=== PATIENT | male | born 1945 | race Caucasian/White ===

== ENCOUNTER → 2020-03-01 14:04 | Outpatient (BNVA) | payer MEDICARE, SELFPAY | PROVIDERS: PCP Internal Medicine; Visit Provider Urology | DX: N28.1 Cyst of kidney, acquired (principal) | CPT/HCPCS: 81002; 99202 ==

== ENCOUNTER → 2021-03-05 11:19 | Outpatient (BNVA) | payer MEDICARE, SELFPAY | PROVIDERS: PCP Internal Medicine; Visit Provider Urology | DX: Z13.89 Encounter for screening for other disorder (principal) | CPT/HCPCS: Q3014 ==

== ENCOUNTER → 2021-12-31 14:07 | Outpatient (BNVA) | payer MEDICARE, SELFPAY | PROVIDERS: PCP Internal Medicine; Visit Provider Hospitalist | DX: R91.1 Solitary pulmonary nodule (principal) | CPT/HCPCS: 99202 ==

== ENCOUNTER 2022-03-20 13:24 | Outpatient (REF) | payer MEDICARE, SELFPAY ==
--- NOTE | ~2022-03-20 | US_ITS ---
EXAMINATION: US RETROPERITONEAL LIMITED (RENAL ONLY) CLINICAL INFORMATION: Cyst of kidney, acquired. COMPARISON: MRI abdomen 04/10/2020. TECHNIQUE: Real-time imaging of the kidneys. FINDINGS: RIGHT KIDNEY: 13.6 x 6.2 x 6.6 cm (SAG x AP x TRV). The kidney is normal in size, contour, and echogenicity. Renal cortical thickness is normal. No renal calculi or hydronephrosis. There are multiple anechoic cysts with largest cyst upper pole measuring 5.3 x 3.9 x 5.0 cm. LEFT KIDNEY: 14.1 x 6.4 x 5.9 cm (SAG x AP x TRV). The kidney is normal in size, contour, and echogenicity. Renal cortical thickness is normal. No renal calculi or hydronephrosis. There are multiple anechoic cysts in midpole with the largest measuring 3.7 x 2.6 x 3.1 cm. US/US renal BI IMPRESSION: Bilateral renal cysts. No echogenic stones or hydronephrosis seen.
== END 2022-03-20 13:25 | disposition home or self-care (01) ==
LOC: HO.US 13:24
PROVIDERS: Visit Provider Urology
DX: N28.1 Cyst of kidney, acquired (principal)
CPT/HCPCS: 76775

== ENCOUNTER → 2022-04-09 11:11 | Outpatient (BNVA) | payer MEDICARE, SELFPAY | PROVIDERS: PCP Internal Medicine; Visit Provider Urology | DX: N28.1 Cyst of kidney, acquired (principal) | CPT/HCPCS: Q3014 ==

== ENCOUNTER 2023-02-26 14:20 | Outpatient (AMB) | payer MEDICARE, SELFPAY ==
--- NOTE | 2023-02-26 14:39 | MHC.OFFVIS ---
Intake Vital Signs 02/26/23 14:40 Height 6 ft 3 in Weight 225 lb BMI 28.1 Pulse 73 Pulse Oximetry (%) 95 Oxygen Delivery Method Room Air Intake Visit Reasons: Pulmonary Nodule Mason Tender Restoration Labor Required: No Allergies No Known Allergies Allergy (Verified 02/26/23 14:40) HPI HPI Comments History of Present Illness Details The patient is a 77-year-old gentleman with a known history of pulmonary nodules was referred to us for further evaluation. From a respiratory status the patient does well. Denies any shortness of breath or cough. Typically lives half the year in [place] specially during the winter months. While he is there he does have a swimming. The patient did undergo a CT scan of the chest last in March 2021. the patient was noted to have 6 mm pulmonary nodule. When compared to 2019 had not significantly changed. Otherwise patient is doing well. There is no other parenchymal lung disease to further assess. The patient has not use any inhalers and he does not need any at this time. 02/26/2023 the patient is here for a pulmonary follow-up visit. Since we last spoke he was evaluated at [facility] with a CT scan of the abdomen. This is done in January 2023. I did personally review the images demonstrating a 5 mm pulmonary nodule in the left lower lobe. I compared to the CT scan he had back at [facility] radiology in appears that the nodule has not changed in a year. Therefore, no additional imaging is warranted at this time. The patient did however have the CT scan of the abdomen demonstrated on increasing pancreatic lesion. Therefore he did have an MRI and will be further evaluated at [facility] for this concerning finding. The patient will follow-up in a year's time with a CT scan of the chest. If any issues arise the patient can always call for an earlier assessment. [facility] Medical History Pulmonary nodule Social History Patient Tobacco Use Status: Former Tobacco user Tobacco use type: Cigarette Years Smoked: 40 Years Review of Systems Const Denies fever(s) Eyes Denies change in vision ENT Reports hearing loss Card Denies chest pain and Denies dyspnea on exertion Resp Denies cough and Denies dyspnea on exertion GI Reports no additional complaints Musc Reports arthralgias, Reports joint swelling and Reports limited range of motion Neuro Reports no additional complaints Irwin/Lymph Denies easy bleeding and Denies easy bruising Physical Exam Vital Signs: Last Vital Signs Pulse 73 02/26/23 14:40 Pulse Ox 95 02/26/23 14:40 Oxygen Delivery Method Room Air 02/26/23 14:40 BMI result Body Mass Index 28.1 Const General: comfortable HEENT Head: Yes normal to inspection Eyes General: appearance normal, both eyes and all related structures Neck Neck: Yes supple Chest Chest palpation & inspection: normal inspection of the chest Resp Effort & Inspection: normal respiratory effort Auscultation: clear to auscultation bilaterally Cardio Rate: regular rate Rhythm: regular rhythm Heart sounds: S1 normal heart sound present and S2 normal heart sound present GI Auscultation: normal bowel sounds Extrem General: Yes no clubbing, cyanosis or edema Assessment & Plan Assessment & Plan (1) Pulmonary nodule: Code(s): R91.1 - Solitary pulmonary nodule Plan Repeat CT chest in 1 year Further eval for the pancreatic lesion F/U 1 yr Orders: Orders CT chest wo IV con 364 Days R91.1 - Solitary pulmonary nodule Coding Level of Care Code Est Pt Level 4 (20682) Diagnoses Pulmonary nodule R91.1 Time Spent (min) 17
[2023-02-26 14:40] VITALS: PULSE 73; O2SAT 95; BMI 28.1
== END 2023-02-26 15:02 | disposition home or self-care (01) ==
PROVIDERS: PCP Internal Medicine; Visit Provider Hospitalist
DX: R91.1 Solitary pulmonary nodule (principal)
CPT/HCPCS: 99214

== ENCOUNTER → 2023-02-26 14:20 | Outpatient (BNVA) | payer MEDICARE, SELFPAY | PROVIDERS: PCP Internal Medicine; Visit Provider Hospitalist | DX: R91.1 Solitary pulmonary nodule (principal) | CPT/HCPCS: 99212 ==

== ENCOUNTER 2024-01-25 10:22 | Outpatient (REF) | payer MEDICARE, SELFPAY ==
--- NOTE | ~2024-01-25 | CT_ITS ---
EXAMINATION: CT CHEST WITHOUT CONTRAST CLINICAL INFORMATION: Solitary pulmonary nodule. COMPARISON: None available. TECHNIQUE: Multidetector volumetric CT imaging of the chest was done. Axial MIP volume rendering provided. Sagittal and coronal reformatted images were obtained. This CT examination was performed using dose optimization techniques as appropriate, variously including the following: *Automated exposure control *Adjustment of mA and/or kV according to patient size (this includes techniques or standardized protocols for targeted exams where dose is matched to indication/reason for exam; i.e. extremities or head) *Use of iterative reconstruction technique DLP: 469 mGy-cm FINDINGS: Submitted for interpretation on March 25, 2024. There is a 4 mm low-density noncalcified nodule in the periphery of the left lower lung lobe. There are few scattered less than 1 mm calcified pulmonary nodules in the periphery of the lower lung lobes likely granulomata. No bronchiectasis. No honeycombing. No pleural effusion. No pneumothorax. No lymphadenopathy, mediastinum. Calcified plaques in the thoracic aorta its main branches and the coronary arteries. No aneurysm, thoracic aorta. No pericardial effusion. The thyroid gland is not enlarged. Small hiatal hernia. Cholelithiasis. Multifocal exophytic cystic lesions in both kidneys. There is a 1.5 cm isodense cystic lesion in the posterior upper pole left kidney which measures 10 Hounsfield units. Multilevel cervical thoracic spondylosis without acute fracture or gross listhesis. S-shaped curvature of the thoracic spine and cervical thoracic junction. No lytic or blastic lesions. CT/CT chest wo IV con IMPRESSION: 4 mm low-density noncalcified pulmonary nodule, left lower lung lobe. Nonspecific. Cholelithiasis. Bosniak type II cysts. Coronary artery disease and atherosclerosis disease. Fleischner guidelines were followed. Electronically signed by: Son Martin MD 03/25/2024 02:59 PM [facility] [place]
== END 2024-01-25 10:23 | disposition home or self-care (01) ==
LOC: HO.CT 10:22
PROVIDERS: PCP Internal Medicine; Visit Provider Hospitalist
DX: R91.1 Solitary pulmonary nodule (principal)
CPT/HCPCS: 71250

== ENCOUNTER → 2024-01-25 10:25 | Outpatient (BNV) | payer MEDICARE, SELFPAY | PROVIDERS: PCP Internal Medicine; Visit Provider Radiology Diagnostic Radiology | DX: R91.1 Solitary pulmonary nodule (principal) | CPT/HCPCS: 71250 ==

== ENCOUNTER 2024-03-01 13:12 | Outpatient (AMB) | payer MEDICARE, SELFPAY ==
--- NOTE | 2024-03-01 13:12 | A.OFFVIS_ITS ---
Vital Signs 03/01/24 13:15 Height 6 ft 3 in Weight 227 lb 1.218 oz BMI 28.4 BP 128/62 Blood Pressure Location Lt brachial Position Sitting Pulse 89 Pulse Source Pulse Oximeter Pulse Oximetry (%) 96 Oxygen Delivery Method Room Air Intake Visit Reasons: pulmonary nodule Bench Worker Helper Required: No Information Systems Security Officer: Information Systems Security Officer offered & declined Accompanied by: Spouse Allergies No Known Allergies Allergy (Verified 03/01/24 13:19) HPI Comments Details: The patient is a 78-year-old gentleman with a known history of pulmonary nodules was referred to us for further evaluation. From a respiratory status the patient does well. Denies any shortness of breath or cough. Typically lives half the year in [place] specially during the winter months. While he is there he does have a swimming. The patient did undergo a CT scan of the chest last in March 2021. the patient was noted to have 6 mm pulmonary nodule. When compared to 2019 had not significantly changed. Otherwise patient is doing well. There is no other parenchymal lung disease to further assess. The patient has not use any inhalers and he does not need any at this time. 02/26/2023 the patient is here for a pulmonary follow-up visit. Since we last spoke he was evaluated at [facility] with a CT scan of the abdomen. This is done in January 2023. I did personally review the images demonstrating a 5 mm pulmonary nodule in the left lower lobe. I compared to the CT scan he had back at [facility] radiology in appears that the nodule has not changed in a year. Therefore, no additional imaging is warranted at this time. The patient did however have the CT scan of the abdomen demonstrated on increasing pancreatic lesion. Therefore he did have an MRI and will be further evaluated at [facility] for this concerning finding. The patient will follow-up in a year's time with a CT scan of the chest. If any issues arise the patient can always call for an earlier assessment. 03/01/2024 the patient is here for pulmonary follow-up visit. Overall he is doing okay. He does have a cough. At times bronchospastic. The has noticed that he has been having some wheezing specially at nighttime. He the patient has been vaping. He understands the vaping will result in potential irritation to the airways. I did recommend edibles or tincture. He is going to consider. The patient did have a CT scan of the chest which I personally reviewed. I compared to the CT scan the head at the [facility]. The CT scan here has not been officially read yet. Although looking at the CT scan from 2021 I do not see any significant changes in the nodular densities. He does have some changes to the right base which could suggest that he is aspirating Lee microscopically. The patient does have more symptoms of coughing at nighttime. He is going to try to sleep elevated and avoid eating 3 hours before bedtime. Will have him follow-up with an x-ray through [address] off on [address] scan specially since the nodules have been stable now since 2018. If the patient has any worsening symptoms prior to that he will call. I will send him a rescue inhaler that he can use now for his cough. He is going to try to cut down on the vaping. [facility] Medical History Pulmonary nodule Social History Patient Tobacco Use Status: Former Tobacco user Tobacco use type: Cigarette Years Smoked: 40 Years Review of Systems Const Denies fever(s) Eyes Denies change in vision ENT Reports hearing loss Card Denies chest pain and Denies dyspnea on exertion Resp Denies cough and Denies dyspnea on exertion GI Reports no additional complaints Musc Reports arthralgias, Reports joint swelling and Reports limited range of motion Neuro Reports no additional complaints Irwin/Lymph Denies easy bleeding and Denies easy bruising Physical Exam Vital Signs: Last Vital Signs Pulse 89 03/01/24 13:15 BP 128/62 03/01/24 13:15 Pulse Ox 96 03/01/24 13:15 Oxygen Delivery Method Room Air 03/01/24 13:15 BMI result Body Mass Index 28.4 Const General: comfortable HEENT Head: Yes normal to inspection Eyes General: appearance normal, both eyes and all related structures Neck Neck: Yes supple Chest Chest palpation & inspection: normal inspection of the chest Resp Effort & Inspection: normal respiratory effort Auscultation: clear to auscultation bilaterally Cardio Rate: regular rate Rhythm: regular rhythm Heart sounds: S1 normal heart sound present and S2 normal heart sound present GI Auscultation: normal bowel sounds Extrem General: Yes no clubbing, cyanosis or edema Assessment & Plan Assessment & Plan (1) Pulmonary nodule: Code(s): R91.1 - Solitary pulmonary nodule Category: Medical Plan Repeat CXR in 1 year start LUC as needed F/U 1 yr Orders: Orders XR chest 2V Today R91.1 - Solitary pulmonary nodule Medications: New albuterol sulfate 90 mcg/actuation 2 inhalations inhalation Q6H 30 days PRN 18 grams 12RF shortness of breath or wheezing J44.9 - Chronic obstructive pulmonary disease, unspecified Coding Level of Care Code Est Pt Level 4 (47784) Diagnoses Pulmonary nodule R91.1 Time Spent (min) 16
[2024-03-01 13:15] VITALS: BP 128/62; PULSE 89; O2SAT 96; BMI 28.4
== END 2024-03-01 13:35 | disposition home or self-care (01) ==
PROVIDERS: PCP Internal Medicine; Visit Provider Hospitalist
DX: R91.1 Solitary pulmonary nodule (principal)
CPT/HCPCS: 99214

== ENCOUNTER → 2024-03-01 13:12 | Outpatient (BNVA) | payer MEDICARE, SELFPAY | PROVIDERS: PCP Internal Medicine; Visit Provider Hospitalist | DX: J44.9 Chronic obstructive pulmonary disease, unspecified (principal); R91.1 Solitary pulmonary nodule | CPT/HCPCS: 99212 ==

== ENCOUNTER 2024-10-26 15:01 | Outpatient (AMB) | payer MEDICARE, SELFPAY ==
--- OUTSIDE RECORDS SUMMARY | 2023-09-02 13:30 | XMS_ITS ---
Author Organization [facility] Address [address] [facility] [address] [place] [address] Care Team Providers Care Alumnae Secretary Name Role Phone IVAN DIXON Primary Care Provider Lopez Lepe Unavailable [phone] Gilbert Valle Unavailable [phone] REASON FOR VISIT 1 month fu Encounters Encounter Location Date Provider Diagnosis [facility] [address] [place] [address] 09/02/2023 Gilbert Valle Plan Of Treatment No Information Progress Notes * Antony QUINNDOB:1945 ( 79 yo M)Acc No.[id number]:09/02/2023 Progress Notes Patient: Antony Grande Provider: Augustus Valle MD :1945 A ge:78 Y S ex:Male Date:09/02/2023 Address:[address] [place] [address], [address], [place], [phone] Pcp:IVAN DIXON Subjective: * Chief Complaints: * 1 month fu Billing Information: * Procedure Codes: * Electronic signature of Lisa Valle MD on 10/26/2024 at 03:25 PM EDT Sign off status: Pending * Provider: Augustus Valle MD Date: 09/02/2023 Generated for Samantha burgos/Nina/eTransmitting on: 10/26/2024 03:25 PM EDT
--- NOTE | 2024-10-26 15:07 | A.OFFVIS_ITS ---
Intake Visit Reasons: follow up per Dr. Mann Intake Note: Patient is present for F/U Urology Medication:NONE Antibiotic Allergy:NONE Blood Thinner:APIXABAN Director Of Employee Development Required: No Allergies No Known Allergies Allergy (Verified 10/26/24 15:07) HPI Comments Details: Antony is a pleasant male. He is a patient of Dr. Mann. He is seen for the following urologic conditions - renal cyst Three year follow-up CT scan chest reviewed Cysts shows stability in size Follow-up p.r.n. Renal cyst Asymptomatic Cysts found during abdominal imaging Imaging - 02/06 renal ultrasound with bilateral renal cysts up to 5 cm - 04/08 MRI with bilateral cysts up to 5 cm staying stable - 04/10 renal ultrasound. Multiple bilateral cysts. Up to 5 cm right side. 3.5 cm left side. Stable - 06/[address] which shows kidneys. Cysts re displayed. Stable in size. PSA 10/08 0.9 PFSH Medical History Pulmonary nodule Social History Patient Tobacco Use Status: Former Tobacco user Tobacco use type: Cigarette Years Smoked: 40 Years Review of Systems Const Denies chills and Denies fever(s) Card Reports no additional complaints and Denies syncope Resp Denies cough GI Denies abdominal pain and Denies heartburn Reports as per HPI and Denies change in libido Neuro Denies syncope Psych Denies change in libido Endo Denies change in libido Physical Exam Const General: cooperative, healthy appearing, comfortable and no acute distress Orientation/consciousness: patient oriented x3 HEENT Face and sinus: Yes normal facial exam Mouth: moist mucous membranes Neck Neck: Yes normal visual inspection, Yes full ROM and Yes trachea midline Chest Chest palpation & inspection: normal inspection of the chest Resp Effort & Inspection: normal respiratory effort, able to speak in complete sentences and no respiratory distress GI Inspection: Yes normal to inspection Back/Spine/Pelvis Cervical Spine: normal cervical lordosis Thoracic/Lumbar Spine: thoracic and lumbar spine normal to inspection Skin General skin exam: no rashes or lesions noted Neuro General: patient oriented x3, gait normal, tone normal and moves all extremities Extrem General: Yes normal to inspection and Yes capillary refill normal Assessment & Plan Assessment & Plan (1) Renal cysts, acquired, bilateral: Comment: Bilateral cyst up to 5 cm Code(s): N28.1 - Cyst of kidney, acquired Category: Medical Plan P.r.n. follow-up Patient Instructions: This note is constructed using voice recognition software. While every effort has been made to ensure accuracy global clinical leader errors may have been included. Imaging studies, laboratory and physical exam results were discussed and reviewed in detail. No major barriers to patient understanding were identified. An opportunity to ask questions regarding the treatment plan was provided. All questions were answered. The patient expressed understanding and agreement with the above treatment plan. The patient is aware they should contact our office by phone for worsening of their current condition or the appearance of new urologic symptoms. Compliance is encouraged with any medications and followup testing that is ordered. It is a privilege to participate in the urologic care of your patient. If you have any questions or concerns regarding treatment for the above conditions, or other urologic issues, please do not hesitate to contact me. The office telephone contact is [phone]. Sincerely, Dr Taran Song MD, [facility] - Urology Compassionate Specialist Care for the Genitourinary System Coding Level of Care Code Est Pt Level 4 (92434) Diagnoses Renal cysts, acquired, bilateral N28.1
--- OUTSIDE RECORDS SUMMARY | 2024-10-26 15:25 | XMS_ITS | Data Portability ---
Author Organization [facility], [facility] Address [address] [facility] [address] [place] [address] Care Team Providers Care Order Builder Name Role Phone GRICEL FUENTES French Polisher [phone] IVAN DIXON Primary Care Provider [phone] GRABIEL GIRARD Primary Care Provider Assessment No assessment recorded. Plan of Treatment Reminders Order Date Submit Date Provider Last Modified By Organization Details Last Modified Time Details Appointments [facility] Patient 30 2025 01:00P M Charlie uTrpin MD Not available Not available Not available Lab None recorded . Referral None recorded . Procedures lexiscan cardioli te stress test (PROC) - Thurs AM 2021 [email or web address] [place] [address] ([facility]), [address] [place], [address], 09/19/2021 12:49:19 Surgeries None recorded . Imaging electroc ardiogra m 2024 025 [email or web address] [facility], [address] [place], [address], 06/09/2024 13:35:56 electroc ardiogra m 2023 024 [email or web address] [facility] [facility], [address] [facility], [place], [address], 06/09/2023 09:35:21 electroc ardiogra m 2022 023 Not available 07/14/2022 15:18:14 electroc ardiogra m 2021 022 [email or web address] [facility], [address], [address], [place], [address], 08/13/2021 09:32:57 Medication Orders None recorded . Patient TargetsNo targets recorded. Patient Instructions Encounter Date Encounter Id Patient Instructions Last Modified By Organization Details Last Modified Time 08/13/2021 [id number] medical record request* - please send most recent labs with lipids [email or web address] Not available 09/02/2021 15:13:50 06/09/2023 [id number] medical record request* - please send most recent labs [email or web address] Not available 10/20/2023 08:13:22 06/09/2024 [id number] body mass index: care instructions [email or web address] Not available 06/09/2024 13:29:35 medical record request* - Please send most recent labs jvafai Not available 10/03/2024 12:45:54 Reason for Referral None Reported. Results Created Date Observation Date Name Description Value Unit Range Abnormal Flag Note LastModifiedBy Organization Detail LastModifiedTime 07/14/1907/12/2020 US, echoc ardio gram, trans thora cic, compl ete, w/ color flow No observ ation record ed. [email or web address] [facility] [address], [place], [address], 07/13/2020 09:50:52 08/14/19 22 08/13/2021 elect rocar diogr am No observ ation record ed. [email or web address] [facility] [address], [place], [address], 08/13/2021 09:24:25 08/14/19 elect rocar diogr am No observ ation record ed. jvafai Not Available 2021 09:10:30 08/16/19 22 08/15/2021 NM, myoca rdial perfu narayan scan, multi ple Patien t Name: ANTONY QUINN 80 [facility] [address] [place] [address] Radiol ogy ACCESS ION EXAM DATE/T DANIEL PROCED URE ORDERI NG STATUS PROVID ER - 022 NM Myocar dial DYANA GRIFFIN, Auth [id number] 10:27 EDT Perf Multi JONATH AN J (Verif ied) Rest/S tress Reason For Exam (NM Myocar dial Perf Multi Rest/S tress) Unexpl ained Chest Pain Report Myocar dial SPECT scan and gated SPECT left ventri cular ejecti on fracti on: Clinic al indica tion: Unexpl ained Chest Pain Follow ing IV admini strati on of 11 mCi of Tc 99m Myovie w, restin g SPECT scan was perfor med. Follow ing IV admini strati on of 30 mCi techne tium 99m Myovie w and 0.4 mg/ml of Lexisc an, stress imagin g was obtain ed. There is normal , homoge neous perfus ion to all segmen ts of the myocar dium on both the stress and restin g phases with no fixed or revers ible defect s to sugges t infarc tion or ischem ia, respec tively . There is no left ventri cular dilata tion. The comput er-gen erated gated SPECT left ventri cular ejecti on fracti ons are 82% at rest with stress . There are no region al left ventri cular wall motion abnorm alitie s. IMPRES NARAYAN: No eviden ce of infarc tion or chemic al-ind uced ischem ia. 82% LVEF ____ Fin al Report Dictat ed: 2021 10:30 am Dictat ed By: JONO CHANDLER MD Electr onic Signat ure: 2021 10:32 am Signed By: JONO CHANDLER MD Admitt ing: DYANA GRIFFIN, LASHAY Odonnell ting: [facility] (Imaging) [address] [place], [address], 08/15/2021 11:30:24 07/15/19 23 07/14/2022 elect rocar diogr am No observ ation record ed. [email or web address] [facility] [address] [place], [address], 07/14/2022 14:46:17 07/15/19 23 elect rocar diogr am No observ ation record ed. [email or web address] Not Available 2023 09:26:39 06/09/19 24 06/09/2023 elect rocar diogr am No observ ation record ed. [facility] [address] [facility] [address], [place], [address], 06/09/2023 09:26:35 06/09/19 24 elect rocar diogr am No observ ation record ed. jvafai Not Available 2023 09:26:39 06/09/19 25 06/09/2024 elect rocar diogr am No observ ation record ed. [email or web address] [facility] [address] [place], [address], 06/09/2024 13:27:03 06/09/19 25 elect rocar diogr am No observ ation record ed. jvafai Not Available 2024 13:31:38 Result Notes Documentation Provider Name and Address Organization Details Recorded Time Nm, Myocardial Perfusion Scan, Multiple : Patient Name: ANTONY QUINN Location: [facility] [address] [place] [address] Radiology ACCESSION EXAM DATE/TIME PROCEDURE ORDERING STATUS PROVIDER - 08/15/2021 NM Myocardial DYANA GRIFFIN, Auth [id number] 10:27 EDT Perf Multi CHARLIE Hoffman (Verified) Rest/Stress Reason For Exam ([place] Myocardial Perf Multi Rest/Stress) Unexplained Chest Pain Report Myocardial SPECT scan and gated SPECT left ventricular ejection fraction: Clinical indication: Unexplained Chest Pain Following IV administration of 11 mCi of Tc 99m Myoview, resting SPECT scan was performed. Following IV administration of 30 mCi technetium 99m Myoview and 0.4 mg/ml of Lexiscan, stress imaging was obtained. There is normal, homogeneous perfusion to all segments of the myocardium on both the stress and resting phases with no fixed or reversible defects to suggest infarction or ischemia, respectively. There is no left ventricular dilatation. The computer-generated gated SPECT left ventricular ejection fractions are 82% at rest with stress. There are no regional left ventricular wall motion abnormalities. IMPRESSION: No evidence of infarction or chemical-induced ischemia. 82% LVEF Final Report Dictated: 08/15/2021 10:30 am Dictated By: GRICEL DASH MD Electronic Signature: 08/15/2021 10:32 am Signed By: GRICEL DASH MD Admitting: CHARLIE TURPIN MD Consulting: Charlie Turpin MD [address] [facility] [address], [address], [facility] 08/15/2021 11:30:24 Problems Name Problem SNOMED Code Status Onset Date Resolution Date Notes Provider Name and Address Organization Details Recorded Time Coronary arteriosclerosi s 29412683 Active 2020 Charlie Turpin MD [address] [facility] ,[address], [place], [address], [facility] 3 14:44:04 Hyperlipidemia 52322109 Active 2024 Charlie Turpin MD [address] [facility] ,[address], [place], [address], [facility] 5 13:25:55 Notes:Some problems listed i n Document: #[id number] could not be added to this patient's chart. Please review this document and add these problems to the patient's chart manually as needed. Problem Notes None recorded. Procedures Surgical History Date Name Laterality Status Provider Name and Address Organization Details Recorded Time 04/20/[address] [facility] 09:25:04 04/20/19 10 Knee Replacement completed [facility] 06/19/2020 09:25:31 Imaging Results None recorded. Procedure Notes None recorded. Medical Equipment None Reported. Allergies No known drug allergies Medications Name Sig Start Date Stop Date Status Note LastModified by Organization Details LastModified Time amoxicillin 500 mg capsule TAKE 1 CAPSULE BY MOUTH THREE TIMES A DAY UNTIL GONE 06/09 completed Not Available Not Available Not Available furosemide 40 mg tablet TAKE 1 TABLET BY MOUTH EVERY DAY 06/19 completed Not Available Not Available Not Available atorvastati n 40 mg tablet TAKE 1 TABLET DAILY 2024 active Not Available Not Available Not Avai lable atorvastati n 80 mg tablet TAKE 1 TABLET BY MOUTH EVERY DAY 06/19 completed Not Available Not Available Not Available atorvastati n 20 mg tablet TAKE 2 TABLETS EVERY DAY AT BEDTIME 06/09 completed Not Available Not Available Not Available donepezil 5 mg tablet Take 1 tablet every day by oral route. 06/09 completed Not Available Not Available Not Available azithromyci n 250 mg tablet TAKE 2 TABLETS BY MOUTH TODAY, THEN TAKE 1 TABLET DAILY FOR 4 DAYS 07/14 completed Not Available Not Available Not Available donepezil 10 mg tablet TAKE 1 TABLET BY MOUTH EVERY DAY AT BEDTIME FOR 90 DAYS active Not Available Not Available No t Available midodrine 5 mg tablet TAKE 1 TABLET BY MOUTH EVERY DAY ORAL THREE TIMES A DAY 30 DAYS 06/09 completed Not Available Not Available Not Available ciprofloxac in 250 mg tablet TAKE 1 TABLET BY MOUTH EVERY 12 HOURS FOR 7 DAYS 06/09 completed Not Available Not Available Not Available ciprofloxac in 500 mg tablet TAKE 1 TABLET BY MOUTH EVERY 12 HOURS FOR 7 DAYS 06/09 completed Not Available Not Available Not Available aspirin 81 mg tablet,aleksandra yed release 1 tab daily 06/09 completed Not Available Not Available Not Available doxycycline monohydrate 100 mg tablet TAKE 1 TABLET BY MOUTH TWICE A DAY FOR 7 DAYS 06/09 completed Not Available Not Available Not Available tramadol 50 mg tablet TAKE 1 TABLET BY MOUTH EVERY 6 HOURS NEEDED MODERATE PAIN 06/09 completed Not Available Not Available Not Available ketorolac 0.5 % eye drops PLEASE SEE ATTACHED FOR DETAILED DIRECTION S 06/19 completed Not Available Not Available Not Available alprazolam 0.5 mg tablet TAKE 1 TABLET BY MOUTH BEFORE PROCEDURE 08/13 completed Not Available Not Available Not Available alprazolam 0.25 mg tablet 1 TAB BY MOUTH ONCE DAILY NEEDED FOR ANXIETY 06/09 completed Not Available Not Available Not Available lorazepam 0.5 mg tablet TAKE 1-2 TABLETS BY MOUTH EVERY DAY NEEDED 06/09 completed Not Available Not Available Not Available benzonatate 100 mg capsule TAKE 1 CAPSULE BY MOUTH THREE TIMES A DAY NEEDED 07/14 completed Not Available Not Available Not Available docusate sodium 100 mg capsule Take 2 capsules every day by oral route. 06/09 completed Not Available Not Available Not Available omeprazole 20 mg capsule,del ayed release TAKE 1 CAPSULE BY MOUTH TWICE A DAY BEFORE MEALS 06/09 completed Not Available Not Available Not Available folic acid 1 mg tablet TAKE 1 TABLET BY MOUTH EVERY DAY 06/09 completed Not Available Not Available Not Available mupirocin 2 % topical ointment APPLY TO AFFECTED AREA TWICE A DAY 06/09 completed Not Available Not Available Not Available furosemide 20 mg tablet TAKE 1 TABLET BY MOUTH EVERY DAY 06/09 completed Not Available Not Available Not Available ibuprofen 600 mg tablet TAKE 1 TABLET BY MOUTH EVERY 6 HOURS NEEDED FOR PAIN 06/09 completed Not Available Not Available Not Available albuterol sulfate HFA 90 mcg/actuati on aerosol inhaler INHALE 2 PUFFS BY MOUTH EVERY 6 HOURS NEEDED FOR SHORTNESS OF BREATH OR WHEEZING 06/09 completed Not Available Not Available Not Available Lipitor 10 mg tablet Take 1 tablet every day by oral route. 08/03 completed Not Available Not Available Not Available ipratropium bromide 21 mcg (0.03 %) nasal spray 06/19 completed Not Available Not Available Not Available oxycodone 5 mg tablet TAKE 1 TABLET BY MOUTH EVERY 4 HOURS NEEDED FOR PAIN 06/09 completed Not Available Not Available Not Available escitalopra m 10 mg tablet Take 1 tablet every day by oral route. active Not Available Not Available No t Available escitalopra m 20 mg tablet TAKE 1 TABLET BY MOUTH EVERY DAY FOR 90 DAYS 06/09 completed Not Available Not Available Not Available memantine 5 mg tablet TAKE 1 TABLET BY MOUTH TWICE A DAY FOR 90 DAYS active Not Available Not Available No t Available chlorhexidi ne gluconate 0.12 % mouthwash SWISH WITH 1/2OZ FOR 30SEC AND SPIT TWICE A DAY FOR 2 WEEKS 06/09 completed Not Available Not Available Not Available omeprazole 20 mg tablet,aleksandra yed release TAKE 2 TABLETS BY MOUTH DAILY 07/14 completed Not Available Not Available Not Available Eliquis 5 mg tablet Take 1 tablet twice a day by oral route. 06/09 completed Not Available Not Available Not Available Breo Ellipta 100 mcg-25 mcg/dose powder for inhalation INHALE 1 PUFF BY MOUTH EVERY DAY 06/09 completed Not Available Not Available Not Available Readi-Cat 2 2 % (w/v) oral suspension PLEASE SEE ATTACHED FOR DETAILED DIRECTION S 06/09 completed Not Available Not Available Not Available Shingrix (PF) 50 mcg/0.5 mL intramuscul ar suspension, kit 08/03 completed Not Available Not Available Not Available Zenpep 40,000 unit-126,00 0 unit-168,00 0 unit capsule,del ayed release TAKE 1 CAPSULE WITH MEALS AND 1 CAPSULE WITH EACH SNACK BY ORAL ROUTE DAILY active Not Available Not Available No t Available Vitals Date Recorded Body height Body mass index (BMI) Body weight Oxygen saturation Oxygen saturation in Arterial blood by Pulse oximetry Systolic And Diastolic Provider Name and Address Organization Details Last Updated DateTime 4 190.5 cm 29.4 kg/m2 685244. 21 g 96 % 96 % 130/72 mm[Hg] Tiffanie Carr [facility] 4 09:16:31 Date Recorded Body height Body mass index (BMI) Body weight Oxygen saturation Oxygen saturation in Arterial blood by Pulse oximetry Heart rate Systolic And Diastolic Provider Name and Address Organization Details Last Updated DateTime 5 190.5 cm 28.1 kg/m2 799576. 28 g 94 % 94 % 69 /min 130/80 mm[Hg] Tiffanie Carr [facility] 5 13:16:27 Date Recorded Body height Heart rate Oxygen saturation Oxygen saturation in Arterial blood by Pulse oximetry Systolic And Diastolic Provider Name and Address Organization Details Last Updated DateTime 3 190.5 cm 91 /min 97 % 97 % 120/82 mm[Hg] Patricia Americo duncan [facility] 3 14:34:42 Date Recorded Body height Body mass index (BMI) Body weight Systolic And Diastolic Provider Name and Address Organization Details Last Updated DateTime 08/03/2020 190.5 cm 34 kg/m2 857771.52 g 136/82 mm[Hg] Juan Carlos Alvarado [facility] 08/03/2020 08:41:20 Date Recorded Body weight Heart rate Oxygen saturation Oxygen saturation in Arterial blood by Pulse oximetry Systolic And Diastolic Provider Name and Address Organization Details Last Updated DateTime 2 251789. 61 g 80 /min 98 % 98 % 132/84 mm[Hg] Robert Marin [facility] 2 09:08:23 Social History Question Answer Notes LastModified by Organizat ion Details LastModified Time Tobacco Smoking Status Former Smoker Quit 2009 and smoked for 10 yrs. [facility] 06/19/2020 09:24:26 Do You Have An Advance Directive? No Information not available 06/09/2023 Are You Blind Or Do You Have Difficulty Seeing? No Information not available 06/09/2023 Is Blood Transfusion Acceptable In An Emergency? Yes Information not available 06/19/2020 What Is Your Level Of Caffeine Consumption? Moderate Information not available 06/19/2020 Are You Deaf Or Do You Have Serious Difficulty Hearing? Yes Information not available 06/09/2023 What Type Of Diet Are You Following? REGULAR Information not available 06/19/2020 When Did You Quit Smoking? 16+yearssinc elastcigaret te Information not available 06/09/2023 Which Of Your Hands Is Dominant? Right Information not available 06/09/2023 Live Alone Or With Others? With Others Information not available 06/09/2023 Does The Patient Have Fever OR Cough OR Shortness Of Breath? No Information not available 06/19/2020 If Pulse Oximetry Was Done: Is The Patient's Sp02 Less Than 93% On Room Air? No Information not available 06/09/2023 Does The Patient Have At Least TWO Of These Symptoms? Diarrhea, Chills, Muscle Pain, Repeated Shaking & Chills, Headache, Sore Throat, Or New Loss Of Taste/Smell No Information not available 06/19/2020 Marital Status [email or web address] Informati on not available 06/09/2023 What Was The Date Of Your Most Recent Tobacco Screening? 06/09/2024 mflower bucks Information not available 06/09/2024 Do You Have Any Pets? No Information not available 06/09/2023 What Is Your Relationship Status? Information not available 06/09/2023 How Many Years Have You Smoked Tobacco? 20 Information not available 06/09/2023 How Many Days In The Past Year Have You Consumed 5 Or More Drinks? 10 Information not available 06/09/2023 Sex: Unknown Functional Status Question Answer Note LastModified by Organizat ion Details LastModified Time Do you use any illicit or recreational drugs? No Information not available 06/09/2023 Do you or have you ever used any other forms of tobacco or nicotine? No Information not available 06/09/2023 What is your level of alcohol consumption? Moderate Information not available 06/19/2020 Are you currently employed? No Information not available 06/09/2023 Are you able to care for yourself? No Information n ot available 06/09/2024 Mental Status Question Answer Note LastModified by Organization D etails LastModified Time Do you feel stressed (tense, restless, nervous, or anxious, or unable to sleep at night)? [id number] [facility] Information not available 06/09/2023 Family History Relationship Description Onset Age of this Age Resolved Age Notes LastModified by Organization Details LastModified Time Father Heart disease 93 Pacema mell fortune Not available 06/19/2020 09:23:25 Medical History Condition Response Seizure Disorder N Eye Problems (Glaucoma, Retinopathy, Mac ular Degeneration) N High Blood Pressure (Hypertension) N AFib (Atrial Fibrillation) N Depression N Kidney Disease/Stones N High Cholesterol (Hyperlipidemia) N Sickle Cell Anemia N No changes to past medical history since last recorded N CHF (Congestive Heart Failure) N Memory Loss (Dementia) Y Mental Illness (Bi-Polar Disorder, Schiz ophrenia) N Hearing Loss Y Heart Attack (Myocardial Infarction) N Heart Disease/Valve Disease N Cancer N Heart Rhythm Problem (Palpitations) N Carotid Disease N Liver Disease/Hepatitis N Implantable Pacemaker/Defibrillator/AICD N Stroke/TIA N Prior Blood Transfusion N Arthritis Rheumatoid N Bleeding Problems N Syncope or Passing Out N HIV N Diabetes (Insulin Dependent) N Gallbladder Disease/Stones N Anxiety Y Edema (Swelling) N Anesthetic Complication N Substance Abuse (Alcohol, Drug) N Joint Pain N Gastrointestinal Disease (IBS, Gastritis , Ulcer, Acid Reflux) N Blood Clot (Deep Vein Thrombosis) N Anemia N Neuropathy (Numbness, Pain, Tingling) N Chronic Venous Insufficiency N Pulmonary Embolism (Blood Clot in the [place] ng) N Peripheral Vascular Disease (PVD) N Diabetes (Non-Insulin Dependent) N Rheumatic Fever N Claustrophobic N No known past medical history recorded b y patient N Tuberculosis N AIDS N Asthma N Developmental Disorder N COPD (Chronic Obstructive Pulmonary Dise ase) N Sleep Apnea N Other Disease(s): N MRSA (Antimicrobial Resistance) N CAD (Coronary Artery Disease) N Thyroid Disease/Disorder N Past Encounters Encounter ID Performer Location Encounter Start Date Encounter Closed Date Diagnosis/Indication Diagnosis SNOMED-CT Code Diagnosis ICD10 Code Diagnosis Note [id number] Charlie Turpin MD [facility] [address] [address] 06/19/2020 08:46:58 06/19/2020 10:26:11 Coronary arteriosclerosis 82125781 I25.10 Coronary calcificat ions but no obstructiv e disease 04/2019. Given the calcium burden I am advising asa 81mg daily. Cardiomyopathy 87315556 I42.9 EF was 50% on LV-gram during cath. His BNP was low so I don't think he had or is having CHF but he never had a formal TTE to quantify his EF. We will get an echo. [id number] Charlie Turpin MD [facility] [address] [facility] [address] 08/03/2020 08:33:05 08/03/2020 11:06:48 Coronary arteriosclerosis 48691285 I25.10 Coronary calcificat ions but no obstructiv e disease 04/2019. Given the calcium burden I am advising asa 81mg daily. Hyperlipidemia 40035570 E78.5 Goal LDL<70 Dyspnea 698596782 R06.00 Non-cardia c based on normal cath, normal echo. He is feeling better and is undergoing workup with Dr. Fuentes. [id number] Charlie Turpin MD [facility] [address] [place] [address] 08/13/2021 08:52:56 08/13/2021 09:32:57 Hyperlipidemia 30280126 E78.5 Goal LDL<70 - i believe he is due for a lipid panel. I will defer to Dr. Rios to get his routine labs. No labs were drawn in the ER. Coronary atherosclerosis 749176711 I25.[address] depression s laterally and he does not walk that well, we will plan for a chemical NST in the next day or so. If new symptoms develop he will proceed to the ER for urgent evaluation . I strongly recommende d they call 911 if he develops new symptoms such as CP, SOB, chest/arm/ jaw pain. They understand and agree. [id number] Charlie Turpin MD [facility] [address] [place] [address] 07/14/2022 14:10:46 07/14/2022 15:18:14 Pulmonary embolism 46318249 I26.99 Provoked due to LLE fractures and soft cast. Cont the Eliquis for at least 6 months, at least until the cast is off and he is able to ambulate. Coronary arteriosclerosis 91762597 I25.10 Coronary calcificat ions but no obstructiv e disease 04/2019. Given the calcium burden I am advising asa 81mg daily when he is off of the DOAC. [id number] Charlie Turpin MD [facility] [address] [facility] [place] [address] 06/09/2023 09:04:43 06/09/2023 09:35:20 Coronary arteriosclerosis 01480651 I25.10 Coronary calcificat ions but no obstructiv e disease 04/2019. Given the calcium burden I am advising asa 81mg daily when he is off of the DOAC. Pulmonary embolism 67316 003 I26.99 Provoked due to LLE fractures and soft cast. s/p Eliquis x 6 months Body mass index 25-29 - overweight 970612075 Z68.29 [id number] Charlie Turpin MD [facility] [address] [place] [address] 06/09/2024 13:07:31 06/09/2024 13:35:56 Coronary arteriosclerosis 16312436 I25.10 Coronary calcificat ions but no obstructiv e disease 04/2019. He is off of aspirin due to a lot of bruising. He has no angina. Hyperlipidemia 61847153 E78.5 Goal LDL<70 - cont the present dose of atorvastat in. Body mass index 25-29 - overweight 623531195 Z68.28 Health Concerns Section Related Observation LastModified by Organization Detai ls LastModified Time None Recorded Concern Status LastModified by Organization Details LastModified Time None Recorded Advance Directives Directive N: Payers Insurance Date Sequence Insurance Name Policy Number Policy Rousseau Covered Member ID Rousseau Member ID Guarantor Name 06/06/2024 2 [employer] (MEDICARE SUPPLEMENT) Antony Quinn [id number] Antony Quinn 06/06/2024 1 [place] Antony Contrerasr [id number] Antony Quinn 09/15/2022 [facility] Antony Quinn [id number] Antony Serg Notes Date Note Type Note Provider Name and Address Organization Details Recorded Time 08/03/2020 text/html Antony presents fo r cardiac evaluation. He states he does get short of breath at night, usually 2x/week when it is warmer in his room. He has had this happen for 2 months. He will usually get up, turn the AC back on and fall back asleep. Apr 2019 he had SOB, he went to the [facility]. He underwent CTA chest. 5mm left lower lobe nodule wa noted. Coronary calcifications were also noted. Cath was performed and did not reveal significant obstructive disease. He saw Dr. Fuentes and apparently further testing is to be performed at [facility]. An MRI was also ordered, due to claustrophobia he will have an open MRI. Imaging at [facility] revealed a cyst on his kidney and on his pancreas. He was also found to have a lung lesion. He had a sleep study about 2 years ago, he was told he was Ok and did not need CPAP. TTE done by me revealed normal EF, normal diastolic function and normal PA pressures and no significant valve disease. Charlie Turpin MD [address], [place], [address], [facility] 08/03/2020 08:53:07 08/13/2021 text/html Antony presents fo r cardiac evaluation. He states he does get short of breath at night, usually 2x/week when it is warmer in his room. He has had this happen for 2 months. He will usually get up, turn the AC back on and fall back asleep. Apr 2019 he had SOB, he went to the [facility]. He underwent CTA chest. 5mm left lower lobe nodule wa noted. Coronary calcifications were also noted. Cath was performed and did not reveal significant obstructive disease. He saw Dr. Fuentes and apparently further testing is to be performed at [facility]. An MRI was also ordered, due to claustrophobia he will have an open MRI. Imaging at [facility] revealed a cyst on his kidney and on his pancreas. He was also found to have a lung lesion. He had a sleep study about 2 years ago, he was told he was Ok and did not need CPAP. TTE done by me revealed normal EF, normal diastolic function and normal PA pressures and no significant valve disease. 08/13/21: Antony fell over the weekend and was evaluated in the ER at [facility]. He sees Dr. Rios tomorrow. He is here with his . He has no chest pain, pressure, dyspnea. He has chronic leg edema. Cath from 2019 was again reviewed, normal coronaries were noted. Charlie Turpin MD [address], [place], [address], [facility] 08/13/2021 10:29:40 07/14/2022 text/html Antony presents fo r follow up. Apr 2019 he had SOB, he went to the [facility]. He underwent CTA chest. 5mm left lower lobe nodule wa noted. Coronary calcifications were also noted. Cath was performed and did not reveal significant obstructive disease.08/13/21: Antony fell over the weekend and was evaluated in the ER at [facility]. He sees Dr. Rios tomorrow. He is here with his . He has no chest pain, pressure, dyspnea. He has chronic leg edema. Cath from 2019 was again reviewed, normal coronaries were noted. 07/14/22: Antony hurt his leg. His ankle swelled up. It was a bad sprain. He fell again and it was found to be have developed a fracture. He was fairly immobilized. He had low BP when he got up. Around 07/05, Antony woke up with SOB. He went to the ER. Antony was found to have significant PE and was hospitalized at [facility] 07/05/22-07/08/22. TTE was ok without RV strain. He was put on heparin to Eliquis. He was fairly immobilized from the leg. Charlie Turpin MD [address], [place], [address], [facility] 07/14/2022 14:52:42 06/09/2023 text/html Antony presents fo r follow up. Apr 2019 he had SOB, he went to the [facility]. He underwent CTA chest. 5mm left lower lobe nodule wa noted. Coronary calcifications were also noted. Cath was performed and did not reveal significant obstructive disease.08/13/21: Antony fell over the weekend and was evaluated in the ER at [facility]. He sees Dr. Rios tomorrow. He is here with his . He has no chest pain, pressure, dyspnea. He has chronic leg edema. Cath from 2019 was again reviewed, normal coronaries were noted. 07/14/22: Antony hurt his leg. His ankle swelled up. It was a bad sprain. He fell again and it was found to be have developed a fracture. He was fairly immobilized. He had low BP when he got up. Around 07/05, Antony woke up with SOB. He went to the ER. Antony was found to have significant PE and was hospitalized at [facility] 07/05/22-07/08/22. TTE was ok without RV strain. He was put on heparin to Eliquis. He was fairly immobilized from the leg. 06/09/23: Antony is off of Eliquis. He had swellin but that has improved. He has no CP, SOB. He has a pancreatic cyst and he is following at [facility]. Charlie Turpin MD [address], [place], [address], [facility] 06/09/2023 09:40:21 06/09/2024 text/html Antony presents fo r follow up. Apr 2019 he had SOB, he went to the [facility]. He underwent CTA chest. 5mm left lower lobe nodule wa noted. Coronary calcifications were also noted. Cath was performed and did not reveal significant obstructive disease.08/13/21: Antony fell over the weekend and was evaluated in the ER at [facility]. He sees Dr. Rios tomorrow. He is here with his . He has no chest pain, pressure, dyspnea. He has chronic leg edema. Cath from 2019 was again reviewed, normal coronaries were noted. 07/14/22: Antony hurt his leg. His ankle swelled up. It was a bad sprain. He fell again and it was found to be have developed a fracture. He was fairly immobilized. He had low BP when he got up. Around 07/05, Antony woke up with SOB. He went to the ER. Antony was found to have significant PE and was hospitalized at [facility] 07/05/22-07/08/22. TTE was ok without RV strain. He was put on heparin to Eliquis. He was fairly immobilized from the leg. 06/09/23: Antony is off of Eliquis. He had swellin but that has improved. He has no CP, SOB. He has a pancreatic cyst and he is following at [facility]. 06/09/24: Antony returns for follow up with his . The past year has been uneventful. Last labs 10/2023. Charlie Turpin MD [address], [place], [address], [facility] 06/09/2024 13:32:38
--- OUTSIDE RECORDS SUMMARY | 2024-10-26 15:25 | XMS_ITS | Clinical Summary ---
Author Organization [facility] it Address [address] [place] [address] Care Team Providers Care Tobacco Stemmer Name Role Phone Juan Mann MD Primary Care Provider [phone] Surgical History Surgery Date Site/Laterality Comments OTHER SURGICAL HISTORY PROCEDURE: CO ARTHRP ACETBLR/PROX FEM PROSTC AGRFT/ALGRFT TOTAL KNEE ARTHROPLASTY PROCEDURE: CO ARTHRP KNE CONDYLE&PLATU MEDIAL&LAT COMPARTMENTS Medical History Medical History Date Comments Family history of cardiovascular disease DX:Family history of cardiovascular disease Dementia without behavioral disturbance (CMS/HCC V24, CMS/HCC V28) DX:Dementia without behavio ral disturbance (HCC) Social History Tobacco Use Types Packs/Day Years Used Date Smoking Tobacco: Never Smokeless Tobacco: Never Sex and Gender Information Value Date Recorded Sex Assigned at Not on file Legal Sex Male 7:58 PM EST Gender Identity Not on file Sexual Orientation Not on file Obstetrics History Last Filed Vital Signs Vital Sign Reading Time Taken Comments Blood Pressure - - Pulse - - Temperature - - Respiratory Rate - - Oxygen Saturation - - Inhaled Oxygen Concentration - - Weight 107 kg (235 lb) 02/13/2023 11:15 AM EDT Height 190.5 cm (6' 3 ) 02/13/2023 11:15 AM EDT Body Mass Index 29.37 02/13/2023 11:15 AM EDT Plan of Treatment Health Maintenance Due Date Last Done Comments DTaP,Tdap,and Td Vaccines (1 - Tdap) 1964 Pneumococcal Vaccine: 50+ Ye ars (1 of 1 - PCV) 1995 Zoster Vaccines (1 of 2) 1995 RSV Immunization Adult Patie nts (1 - 1-dose 75+ series) 2020 Cholesterol Screening (Lipid Panel) 03/22/2022 Depression Screening 03/22/2022 Falls Risk Assessment 03/22/2022 Hepatitis C Screening 03/22/2022 Social Influencers of Health Screening 03/22/2022 COVID-19 Vaccine (2023-2 5 season) 2023 Influenza Vaccine (#1) 2024 HIB Vaccines Aged Out No longer eligi ble based on patient's age to complete this topic HPV Vaccines Aged Out No longer eligi ble based on patient's age to complete this topic Hepatitis A Vaccines Aged Out No long er eligible based on patient's age to complete this topic Hepatitis B Vaccines Aged Out No long er eligible based on patient's age to complete this topic IPV Vaccines Aged Out No longer eligi ble based on patient's age to complete this topic MMR Vaccines Aged Out No longer eligi ble based on patient's age to complete this topic Meningococcal ACWY Vaccine Aged Out N o longer eligible based on patient's age to complete this topic Meningococcal B Vaccine Aged Out No l onger eligible based on patient's age to complete this topic RSV Immunization Patients Un larry 20 months Aged Out No longer eligible b ased on patient's age to complete this topic Varicella Vaccines Aged Out No longer eligible based on patient's age to complete this topic Care Teams Tobacco Stemmer Relationship Specialty Start Date End Date Juan Mann MD PCP - General 01/25/16
== END 2024-10-26 15:25 | disposition home or self-care (01) ==
LOC: HO.HUSH 15:02
PROVIDERS: PCP Internal Medicine; Visit Provider Urology
DX: N28.1 Cyst of kidney, acquired (principal)
CPT/HCPCS: 99214

== ENCOUNTER → 2024-10-26 15:01 | Outpatient (BNVA) | payer MEDICARE, SELFPAY | PROVIDERS: PCP Internal Medicine; Visit Provider Urology | DX: N28.1 Cyst of kidney, acquired (principal) | CPT/HCPCS: 99212 ==

== ENCOUNTER 2025-02-20 11:12 | Outpatient (REF) | payer MEDICARE, SELFPAY ==
--- OUTSIDE RECORDS SUMMARY | 2023-09-02 12:30 | XMS_ITS ---
Author Organization [facility] Address [address] [facility] [address] [place] [address] Care Team Providers Care Well Shooter Name Role Phone IVAN DIXON Primary Care Provider Lopez Lepe Unavailable [phone] Gilbert Valle Unavailable [phone] REASON FOR VISIT 1 month fu Encounters Encounter Location Date Provider Diagnosis [facility] [address] [facility] [address] [place] [address] 09/02/2023 Gilbert Valle Plan Of Treatment No Information Progress Notes * Antony QUINNDOB:1945 ( 79 yo M)Acc No.[id number]:09/02/2023 Progress Notes Patient: Antony Grande Provider: Augustus Valle MD :1945 A ge:78 Y S ex:Male Date:09/02/2023 Address:[address] [place] [address], [address], [place], [id number] Pcp:IVAN DIXON Subjective: * Chief Complaints: * 1 month fu Billing Information: * Procedure Codes: * Electronic signature of Lisa Valle MD on 02/20/2025 at 02:14 PM EST Sign off status: Pending * Provider: Augustus Valle MD Date: 09/02/2023 Generated for Patyi ng/Fajayro/eTransmitting on: 1 04/22/2024 02:14 PM EST
--- OUTSIDE RECORDS SUMMARY | 2025-02-16 08:15 | XMS_ITS ---
Author Organization [facility] Address [address] [facility] [address] [place] [address] Care Team Providers Care Scrap Stripper Hand Name Role Phone Juan Mann Primary Care Provider LYSSA Ventura Unavailable [phone] Allergies No Known Allergies Results Component Value Reference Range Notes Anaerobic/Aerobic/Gram Stain -[id number] (Not yet reviewed by provider) Interpretation: Performing Lab:[facility] [place], [address], [address], [place], Phone - [phone], Director - [facility] Notes/Report: Clinical Information:SRC: SOURCE NOT INDICATED Clinical Information:SRC: SOURCE NOT INDICATED Clinical Information:SRC: SOURCE NOT INDICATED Clinical Information:SRC: SOURCE NOT INDICATED Anaerobic Culture Final report Aerobic Culture Final report Gram Stain Result Final report Result 1 No anaerobic gr owth in 72 hours. Result 1 Mixed skin maricruz including multiple gram negative rods. Heavy growth Result 1 Rare white bloo d cells. Result 2 Rare gram posit tamia cocci REASON FOR VISIT Lt foot toenail infection to the great toe, and also ?'s 2nd toenail fungus Medications Medication SIG (Take, Route, Fr equency, Duration) Notes Start Date End Date Status Lipitor 40 MG 1 tablet Orally Once a day Active Memantine HCl 5 MG 1 tablet Orally twice a day Active Zenpep 77723-37464 UNIT as directed Orally Active Donepezil HCl 10 MG 1 tablet at bedtime Orally Once a day Active Lexapro 20 MG 1 tablet Orally Once a day Active Problems Problem Type SNOMED Code ICD Code Onset Dates Problem Status W/U Status Risk Notes Problem Pressure injury of toe of left foot stage III (disorder) (743065876891423) Pressure injury of toe of left foot, stage 3 (L89.893) Active confirmed Problem Acquired cavovarus deformity of left foot (6432498483901988 ) 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.6X2) Active confirmed Problem Polyneuropathy associated with another disorder (723321528) Polyneuropathy associated with underlying disease (G63) Active confirmed Vital Signs Temperature 97.1 degrees Fahrenheit 02/17/20 Heart Rate 71 /min 02/16/2025 Respiratory Rate 16 /min 02/16/2025 Height 6ft 3in in 02/16/2025 Weight 241.1 lbs 02/16/2025 BMI 30.13 kg/m2 02/16/2025 Procedures Procedure Date Ordered Date Performed Result Body Sit e Debridement ulcer subq first 20sq cm 02/16/2025 N/A Encounters Encounter Location Date Provider Diagnosis [facility] [address] [facility] [address] [place] [address] 02/16/2025 LYSSA VERDE Pressure injury of t oe of left foot, stage 3 L89.893 ; Acquired cavovarus deformity of left foot M21.6X2 ; Acquired claw toe of left foot M20.5X2 ; Left foot drop M21.372 ; Polyneuropathy associated with underlying disease G63 and Nail dystrophy L60.3 Assessments Encounter Date Diagnosis (ICD Code) Assessment Notes Treatment Notes Treatment Clinical Notes Section Notes 02/16/2025 Pressure injury of toe of left foot, stage 3 (ICD-10 - L89.893) This is an outpatient visit for evaluation and management of a new patient, which required appropriate review of pertinent medical history, review of any previous imaging, review of all previous records, and examination and decision-making. Time was 45 minutes spent in review of all these facets including face to face discussion with the patient regarding my findings and in discussion of a current and future treatment plan. Patient presents with an ulceration to the distal tuft of the left 2nd toe. The is the primary historian and believes this has been present for 2 weeks. There has been no drainage. There is localized erythema and edema to this toe. I debrided the ulcerative lesion down to healthy granular tissue. There is no undermining or probing. I did take wound cultures today and sent them off for gram stain, aerobic and anaerobic culture. I applied a dry sterile bandage and advised that they do this daily. They can use betadine to the area every other day. I will await cultures to start an antibiotic. I advised that he use his brace as his drop foot and toe contractures make it easy for pressure areas and falling. Both understood. I would like to recheck this area in 2 weeks. If they notice any worsening erythema, edema, drainage, or a sense of pain I advised he call us or follow up at a nearest ER. They expressed understanding of this. 02/16/2025 Acquired cavovarus deformity of left foot (ICD-10 - M21.6X2) 02/16/2025 Acquired claw toe of left foot (ICD-10 - M20.5X2) 02/16/2025 Left foot drop (ICD-10 - M21.372) 02/16/2025 Polyneuropathy associated with underlying disease (ICD-10 - G63) 02/16/2025 Nail dystrophy (ICD-10 - L60.3) Patient has chronic toenail dystrophy. I discussed with them that it is hard to say if this is due to fungus or other factors such as his systemic illnesses, pressure induced, vit deficiencies and or medications. I took samples from a few of the nails today using a sterile nail polish brush machine feeder. These have been sent off for bacterial and fungal testing through [facility] pathology. If there is a fungal infection, we can treat topically for the next year. If there is no infection, there is not much that can be done to normalize the nail plates. The both expressed understanding of this. Plan Of Treatment Treatment Notes Assessment Notes Pressure injury of toe of le foot, stage 3 This is an outpatient visit for evaluation and management of a new patient, which required appropriate review of pertinent medical history, review of any previous imaging, review of all previous records, and examination and decision-making. Time was 45 minutes spent in review of all these facets including face to face discussion with the patient regarding my findings and in discussion of a current and future treatment plan. Patient presents with an ulceration to the distal tuft of the left 2nd toe. The is the primary historian and believes this has been present for 2 weeks. There has been no drainage. There is localized erythema and edema to this toe. I debrided the ulcerative lesion down to healthy granular tissue. There is no undermining or probing. I did take wound cultures today and sent them off for gram stain, aerobic and anaerobic culture. I applied a dry sterile bandage and advised that they do this daily. They can use betadine to the area every other day. I will await cultures to start an antibiotic. I advised that he use his brace as his drop foot and toe contractures make it easy for pressure areas and falling. Both understood. I would like to recheck this area in 2 weeks. If they notice any worsening erythema, edema, drainage, or a sense of pain I advised he call us or follow up at a nearest ER. They expressed understanding of this. Nail dystrophy Patient has chronic toenail dystrophy. I discussed with them that it is hard to say if this is due to fungus or other factors such as his systemic illnesses, pressure induced, vit deficiencies and or medications. I took samples from a few of the nails today using a sterile nail polish brush machine feeder. These have been sent off for bacterial and fungal testing through [facility] pathology. If there is a fungal infection, we can treat topically for the next year. If there is no infection, there is not much that can be done to normalize the nail plates. The both expressed understanding of this. Pending Test Test Name Order Date Debridement ulcer subq first 20sq cm Anaerobic/Aerobic/Gram Stain-[id number] 01/20 Next Appt Details Follow Up: 2 Weeks, Reason: Provider Name:LYSSA VERDE, 03/03/2025 02:15:00 PM, [address], [address], Progress Notes * Antony QUINNDOB:1945 ( 79 yo M)Acc No.[id number]:02/16/2025 Consult note Patient: Antony LIU Provider: Emory Lopez DPMilo :1945 A ge:79 Y S ex:Male Date:02/16/2025 Address:[address] [place] [address], [address], [facility] Pcp:Juan Mann Subjective: * Chief Complaints: * L t foot toenail infection to the great toe, and also ?'s 2nd toenail fungus * HPI: F oot & Ankle: Mr. Quinn is a pleasant 79 year old male who presents for consultation. He is here with his . She states she was cutting his toenails and noticed a wound area to the left 2nd toe. She is unsure if this started after cutting the nails or not. The toe has been a bit swollen and red for the last two weeks. There has been no drainage to it. He denies any pain associated with it. She is also concerned with some discoloration to a few of the toenails that has been present for many years. Patient has weakness to the left lower extremity and usually wears a brace. He also uses a walker to ambulate. 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 * ROS: G eneral/Constitutional: Denies C hills. D enies F atigue. D enies F ever. D enies H eadache. A llergy/Immunology: Denies H clive. D enies I tching. D enies R malinda. E ndocrine: Denies E xcessive sweating. D enies E xcessive thirst. D enies F requent urination. R espiratory: Denies C ough. D enies S hortness of breath, d enies. D enies W heezing. C ardiovascular: Denies C hest pain. D enies C laudication. D enies C yanosis. G astrointestinal: Denies A bdominal pain. D enies C onstipation. D enies D iarrhea. H ematology: Denies B leeding problems, d enies. D enies E asy bruising, d enies. D enies S wollen glands. M usculoskeletal: Admits A rthritis/Arthralgia. D enies S ciatica.?Denies S wollen joints. P eripheral Vascular: Denies B lanching of skin. B lood clots in legs D enies. D enies C old extremities. S kin: Denies M asses. A dmits N ail changes. A dmits?Skin lesion(s). N eurologic: Admits L oss of strength. D enies P aralysis. D enies T ingling/Numbness. D enies T remor. P sychiatric: Denies A uditory/visual hallucinations. D enies D elusions. D enies S uicidal thoughts. * Medical History: * Surgical History: T & A right hip replacement 2002, 2007left knee replacement 2009left wrist surgery 2012partial right hip replacement 07/14/2013 * Hospitalization/Major Diagno stic Procedure: T & A right hip replacement 2002, 2007left knee replacement 2009partial right hip replacement 07/14/2013[facility] broken ankle after falling off bed 12/2022orthostatic hypotension/ left DVT 2023 * Family History: F ather: , pacemaker. M other: . S iblings: brother- colon adenomas.?2 brother(s) - healthy. 3 son(s) - healthy. . * Social History: T obacco: never smoker Alcohol: yes, daily smokes marijuana 2/day Lives with . Half the year in [place]. * Medications: T akingLipitor 40 MG Tablet 1 tablet Orally Once a day Donepezil HCl 10 MG Tablet 1 tablet at bedtime Orally Once a day Lexapro 20 MG Tablet 1 tablet Orally Once a day Memantine HCl 5 MG Tablet 1 tablet Orally twice a day Zenpep 94629-28630 UNIT Capsule Delayed Release Particles as directed Orally Medication List reviewed and reconciled with the patientTaking Lipitor 40 MG Tablet 1 tablet Orally Once a day Taking Donepezil HCl 10 MG Tablet 1 tablet at bedtime Orally Once a day Taking Lexapro 20 MG Tablet 1 tablet Orally Once a day Taking Memantine HCl 5 MG Tablet 1 tablet Orally twice a day Taking Zenpep 20037-48170 UNIT Capsule Delayed Release Particles as directed Orally Medication List reviewed and reconciled with the patient * Allergies: N .K.D.A.no[Allergies Verified] Objective: * Vitals: W t: 241.1 lbs, Ht: 6ft 3in, BMI: 30.13 Index, HR: 71 /min, Temp: 97.1 F, RR: 16 /min, Ht-cm: 190.5, Wt-k.36 kg. * Examination: G eneral Examination: T his is an elderly male. Alert and oriented today and in no acute distress. Patient comes in ambulating in sneakers with the aid of a walker. A ffect is pleasant and cooperative. No unusual anxiety or depression noted. Hard of hearing. No evidence of visual impairment that would impact self care or ambulation. Patient has palpable dorsalis pedis and posterior tibial pulse bilaterally. +2 peripheral edema from the knee to the dorsum of each foot. There are chronic indurative skin changes to the lower legs with hyperpigmentation. No open wounds to the legs. There is a cavovarus deformity on the left. 0/5 dorsiflexion and eversion strength on the left. Extension of all the toes from the MTPJs on the left with PIPJ contractures. There is an ulceration to the distal tuft of the left 2nd toe that is full thickness. There is 10% fibotic tissue and 90% granular tissue. Measures 0.5cm x 0.8cm x 0.2cm. No probing or undermining. No drainage. No streaking erythema. There is localized edema and erythema to the entire left 2nd toe. There is obvious loss of protective sensation to both feet. All toenails have slight green discoloration with some increased thickness. No subungual debris. There is loss of hair growth. Therapeutic Interventions: Assessment: * Assessment: 1. P ressure injury of toe of left foot, stage 3 - L89.893 (Primary) 2 . A cquired cavovarus deformity of left foot - M21.6X2 3 . A cquired claw toe of left foot - M20.5X2 4 . L eft foot drop - M21.372 5 . P olyneuropathy associated with underlying disease - G63 6 . N ail dystrophy - L60.3 Plan: * Treatment: 2. N ail dystrophy Notes: Patient has chronic toenail dystrophy. I discussed with them that it is hard to say if this is due to fungus or other factors such as his systemic illnesses, pressure induced, vit deficiencies and or medications. I took samples from a few of the nails today using a sterile nail polish brush machine feeder. These have been sent off for bacterial and fungal testing through [facility] pathology. If there is a fungal infection, we can treat topically for the next year. If there is no infection, there is not much that can be done to normalize the nail plates. The both expressed understanding of this. * Procedures: D EBRIDEMENT OF ULCERATION:A full thickness excisional debridement was performed to the ulcer at the distal tuft of the left 2nd toe with a 15 blade removing all non- viable tissue down to a clean bleeding base. Wound measurements following debridement were 0.5cm x 0.8xm x 0.2xm. The patient tolerated the procedure well.Bleeding controlled with pressure, dry sterile bandage applied. * Procedure Codes: 1 1042 DEBRIDE SKIN/TISSUE * Follow Up: 2 Weeks * Billing Information: * Visit Code: 57459 Office Visit, New Pt., Level 4. Modifiers: 25 * Procedure Codes: 76848 DEBRIDE SKIN/TISSUE. * Sign off status: Completed true * Provider: Emory Lopez DPM Date: Generated for Samantha burgos/Nina/Paramjit on: 04/22/2024 02:14 PM EST History and Physical Notes * Examination Category Sub-Category Detail Notes Category Not es General Examination This is an elderly male. Alert and oriented today and in no acute distress. Patient comes in ambulating in sneakers with the aid of a walker. Affect is pleasant and cooperative. No unusual anxiety or depression noted. Hard of hearing. No evidence of visual impairment that would impact self care or ambulation. Patient has palpable dorsalis pedis and posterior tibial pulse bilaterally. +2 peripheral edema from the knee to the dorsum of each foot. There are chronic indurative skin changes to the lower legs with hyperpigmentation. No open wounds to the legs. There is a cavovarus deformity on the left. 0/5 dorsiflexion and eversion strength on the left. Extension of all the toes from the MTPJs on the left with PIPJ contractures. There is an ulceration to the distal tuft of the left 2nd toe that is full thickness. There is 10% fibotic tissue and 90% granular tissue. Measures 0.5cm x 0.8cm x 0.2cm. No probing or undermining. No drainage. No streaking erythema. There is localized edema and erythema to the entire left 2nd toe. There is obvious loss of protective sensation to both feet. All toenails have slight green discoloration with some increased thickness. No subungual debris. There is loss of hair growth.
--- NOTE | ~2025-02-20 | XR_ITS ---
EXAMINATION: XR CHEST CLINICAL INFORMATION: R91.1 - Solitary pulmonary nodule COMPARISON: Correlated to CT chest dated January 25, 2024. TECHNIQUE: PA and lateral views. FINDINGS: Hyperinflated lungs. Pulmonary reticular pattern. No consolidation, pleural effusion or pneumothorax. Cardiomediastinal silhouette size is normal. S-shaped curvature of the thoracolumbar spine and multilevel spondylosis. Osteopenia versus osteoporosis. Degenerative changes in the left shoulder. XR/XR chest 2V IMPRESSION: No acute airspace disease. Pulmonary nodule is not identified on x-ray. Probable chronic interstitial lung disease. Multilevel spondylosis and scoliosis. Electronically signed by: Son Martin MD 02/20/2025 11:40 AM JUANA
--- OUTSIDE RECORDS SUMMARY | 2025-02-20 14:14 | XMS_ITS | Clinical Summary ---
Author Organization [facility] Address [address] [place] [address] Phone Care Team Providers Care Strip Presser Name Role Phone Juan Mann MD Primary Care Provider [phone] Allergies No known active allergies Social History Tobacco Use Types Packs/Day Years Used Date Smoking Tobacco: Never Assessed Education Answer Date Recorded Are you interested in more education? Not on joanne e 08/14/2022 Are you concerned about learning? Not on file 08/14/2022 No 08/14/2022 No 08/14/2022 Digital Access Answer Date Recorded No 09/15/2022 No 09/15/2022 No 09/15/2022 Reliable internet access at home? Not on file 09/15/2022 Device with a working camera? Not on file Sex and Gender Information Value Date Recorded Sex Assigned at Not on file Legal Sex Male 7:16 PM EST Gender Identity Not on file Sexual Orientation Not on file Plan of Treatment Health Maintenance Due Date Last Done Comments Adult Td,Tdap Booster 1945 LIPID PANEL 1945 DEPRESSION SCREENING 1957 SMOKING Hx and SMOKELESS TOBACCO SCREENING 1958 HEPATITIS C SCREENING 1963 ZOSTER VACCINES (1 of 2) 1995 PNEUMOCOCCAL VACCINES (50+ years) (2 of 2 - PPSV23) 01/28/2017 01/29/2016 RSV VACCINE (1 - 1-dose 75+ series) 2020 INFLUENZA VACCINE (#1) 2024 , 01/02/2020, 01/05/2019 COVID-19 VACCINE (2 - 2024-2 6 season) 2024 03/04/2021 HEPATITIS A VACCINES Aged Out No long er eligible based on patient's age to complete this topic HIB VACCINES Aged Out No longer eligi ble based on patient's age to complete this topic MENINGOCOCCAL VACCINES (ACWY) Aged Out No longer eligible based on patient's age to complete this topic MENINGOCOCCAL VACCINES (B) Aged Out N o longer eligible based on patient's age to complete this topic Medical Devices Not on file Insurance [address] [place] [address] MED[place] [id number] [facility] MEDICARE [place] [address] [place] [phone] [employer] [address] [place] [address] MEDICARE PART A & B [facility] MEDICARE SUPPLEMENT [address] [place] [address] MEDICARE PART A & B [facility] MEDICARE SUPPLEMENT [address] [place] [address] MEDICARE PART A & B Member Subscriber Plan / Payer (Ef fective 2012-Present) Name:Antony Ulrich Member ID:[id number] Relation to Subscriber:Self Name:Antony Ulrich Subscriber ID:[id number] Payer ID:[id number] Group ID:Not on file Type:Medicare Address: [employer] [address] MEDICARE SUPPLEMENT MEDICARE PART A & B [facility] MEDICARE SUPPLEMENT [address] [place] [address] MEDICARE PART A & B [address] [address] [address] [place] [id number] [place] [address] MEDICARE PART A & B MEDICARE SUPPLEMENT [address] [place] [address] MEDICARE PART A & B MEDICARE SUPPLEMENT EPS [address] [place] [address] MEDICARE PART A & B MEDICARE SUPPLEMENT Care Teams Strip Presser Relationship Specialty Start Date End Date Juan Mann MD [address] [place] [address] PCP - General Internal Medicine 10/03/14 Additional Source Comments The information contained in this document represents components of the legal health record. It is not the complete legal health record.[facility]
--- OUTSIDE RECORDS SUMMARY | 2025-02-20 14:14 | XMS_ITS | Patient Health Record ---
Author Organization [facility] Address [address] [facility] [address] [place] [address] Care Team Providers Care Clerical Transcriber Name Role Phone Juan Mann Primary Care Provider LYSSA Ventura Unavailable [phone] Allergies No Known Allergies Results Component Value Reference Range Notes Anaerobic/Aerobic/Gram Stain -[id number] (Not yet reviewed by provider) Interpretation: Performing Lab:[facility] [place], [address], [address], [place], Phone - [phone], Director - [facility] Notes/Report: Clinical Information:SRC: SOURCE NOT INDICATED Clinical [...] Result 2 Rare gram posit tamia cocci Reason For Referral No Information Medications Medication SIG (Take, Route, Fr equency, Duration) Notes Start Date End Date Status Lipitor 40 MG 1 tablet Orally Once a day Active Memantine HCl 5 MG 1 tablet Orally twice a day Active Zenpep 13393-40895 UNIT as directed Orally Active Donepezil HCl 10 MG 1 tablet at bedtime Orally Once a day Active Lexapro 20 MG 1 tablet Orally Once a day Active Problems Problem Type SNOMED Code ICD Code Onset Dates Problem Status W/U Status Risk Notes Problem Polyneuropathy associated with another disorder (653922568) Polyneuropathy associated with underlying disease (G63) Active confirmed Problem Acquired cavovarus deformity of left foot (4360420007902979 ) 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.6X2) Active confirmed Problem Pressure injury of toe of left foot stage III (disorder) (559782013281178) Pressure injury of toe of left foot, stage 3 (L89.893) Active confirmed Vital Signs Heart Rate 71 /min 02/16/2025 Temperature 97.1 degrees Fahrenheit 02/16/2025 Respiratory Rate 16 /min 02/16/2025 Height 6ft 3in in 02/16/2025 Weight 241.1 lbs 02/16/2025 BMI 30.13 kg/m2 02/16/2025 Procedures Procedure Date Ordered Date Performed Result Body Sit e Debridement ulcer subq first 20sq cm 02/16/2025 N/A Encounters Encounter Location Date Provider Diagnosis [facility] [address] [address] 02/16/2025 LYSSA VERDE Pressure injury of t oe of left foot, stage 3 L89.893 ; Acquired cavovarus deformity of left foot M21.6X2 ; Acquired claw toe of left foot M20.5X2 ; Left foot drop M21.372 ; Polyneuropathy associated with underlying disease G63 and Nail dystrophy L60.3 [facility] [address] [address] 12/26/2024 LYSSA VERDE Assessments Encounter Date Diagnosis (ICD Code) Assessment Notes Treatment Notes Treatment Clinical Notes Section Notes 02/16/2025 Acquired cavovarus deformity of left foot (ICD-10 - M21.6X2) 02/16/2025 Pressure injury of toe of left [...] They expressed understanding of this. 02/16/2025 Acquired claw toe of left foot [...] the nails today using a sterile nail mill worker. These have been sent off for bacterial and fungal testing through [facility] pathology. If there is a fungal infection, we can treat topically for the next year. If there is no infection, there is not much that can be done to normalize the nail plates. The both expressed understanding of this. Plan Of Treatment Pending Test Test Name Order Date Debridement ulcer subq first 20sq cm Anaerobic/Aerobic/Gram Stain-[id number] 01/20 Next Appt Details Provider Name:LYSSA VERDE, 03/03/2025 02:15:00 PM, [address] [facility] [facility] [address], [place], [address], Insurance Providers Payer Name Payer Address Payer Phone Subscriber Number Group Number Insured Name Patient Relationship to Insured Coverage Start Date Coverage End Date Medicare of [place] [address] [place] [phone] [id number] SergAntony Self - patient is the insured [employer] Secondary to Medicare [address] [place] [address] [id number] SergAntony Self - patient is the insured Medical (General) History Medical History History ICD Code degenerative arthritis, left knee cyst on pancreas .. IPMN follows gastro anxiety gastroesophageal reflux disease (GERD) hyperlipidemia bilateral cortical renal cyst stable pancreatic cysts cholelithiasis provoked pulmonary embolism secondary to left lower extremity fractures history of alcohol abuse meningioma pulmonary nodules stable since 2018 COVID vaccinated X 5 Left lower extremity weakness with drop foot Mild cognitive decline Surgical History Surgery Date(Month/Year) T & A right hip replacement 2002, 2007 left knee replacement 2009 left wrist surgery 2013 partial right hip replacement 07/14/2013 Hospitalization History Reason Date(Month/Year) orthostatic hypotension/ left DVT 2023 [facility] broken ankle after fall ing off bed 12/2022 partial right hip replacement 07/14/2013 left knee replacement 2009 right hip replacement 2002, 2007 [facility]
--- OUTSIDE RECORDS SUMMARY | 2025-02-20 14:14 | XMS_ITS | Patient Health Record ---
Author Organization [facility] Address [address] [facility] [address] [place] [address] Care Team Providers Care Scale Operator Name Role Phone IVAN DIXON Primary Care Provider Lopez Lepe Unavailable [phone] Allergies No Known Allergies Reason For Referral No Information Medications Medication SIG (Take, Route, Frequency, Duration) Notes Start Date End Date Status Zenpep [id number] UNIT Capsule Delayed Release Particles Oral; Duration: 25 Days Acti ve Readi-Cat 2 2 % Suspension PLEASE SEE AT TACHED FOR DETAILED DIRECTIONS Oral; Duration: 1 Days Active Doxycycline Monohydrate 100 MG Tablet TAKE 1 TABLET BY MOUTH TWICE A DAY FOR 7 DAYS Oral; Duration: 7 Days Active Donepezil HCl 10 MG Tablet TAKE 1 TABLET (10MG)BY ORAL ROUTE AT BEDTIME DAILY Oral Once a day; Duration: 90 days Active Eliquis 5 MG Tablet Oral; Duration: 90 Days Active Memantine HCl 10 MG Tablet TAKE 1 TABLET (5MG) BY ORAL ROUTE DAILY Orally Twice a day; Duration: 90 days Active Atorvastatin Calcium 40 MG Tablet Oral; Duration: 90 Days Acti ve Mupirocin 2 % Ointment External; Duratio n: 30 Days Active ALPRAZolam 0.25 MG Tablet Oral; Duration: 10 Days Active Escitalopram Oxalate 20 MG Tablet TAKE 1 TABLET BY MOUTH EVERY DAY FOR 30 DAYS Oral; Duration: 30 Days Active Midodrine HCl 5 MG Tablet TAKE 1 TABLET BY MOUTH EVERY DAY Oral three times a day; Duration: 30 days Active Social History Tobacco Use: Social History Observation Description Date Details (start date - stop date) Current Smoker 04/20/1963 - NA Social History Tobacco Use: Social Info Question Answer Notes Tobacco Use/Smoking Are you a current smoker? yes When did you start smoking? 04/20/1963 How often do you smoke cigarettes? every day How many cigarettes a day do you smoke? 11-20 Additional Details Category Social Info Options Details Marital Status: Yes Tobacco Use: Alcohol None Illegal Drugs None Problems Problem Type SNOMED Code ICD Code Onset Dates Problem Status W/U Status Risk Notes Problem Migraine (92338478) Migraine (G43.909) Active confirmed Problem Mild cognitive disorder (627557309) MCI (mild cognitive impairment) (G31.84) Active confirmed Problem Vasculitis (45414880) Vasculitis (I77.6) Active confirmed Problem Hypothyroidism (38026440) Hypothyroidism, unspecified type (E03.9) Active confirmed Plan Of Treatment Pending Test Test Name Order Date SED RATE BY MODIFIED WESTERGREN 08/03/19 SED RATE BY MODIFIED WESTERGREN 07/06/19 SED RATE BY MODIFIED WESTERGREN 08/13/19 TSH 08/13/2023 TSH 08/03/2023 TSH 07/06/2023 VITAMIN B12 (927) 07/06/2023 VITAMIN B12 (927) 08/03/2023 VITAMIN B12 (927) 08/13/2023 AMYLOID BRAIN PET SCAN 08/03/2023 AMYLOID BRAIN PET SCAN 07/06/2023 MRI Brain without Contrast with NeuroQua nt 07/06/2023 AD-DETECT(TM), BETA AMYLOID 42/40 RATIO, Plasma ([facility]) 08/03/2023 AD-DETECT(TM), BETA AMYLOID 42/40 RATIO, Plasma (QUEST) 08/13/2023 Insurance Providers Payer Name Payer Address Payer Phone Subscriber Number Group Number Insured Name Patient Relationship to Insured Coverage Start Date Coverage End Date Medicare Part B [address] [address] [place] [address] [phone] [id number] Antony Ulrich Self - patient is the insured [facility] Supplemental Plan [address] [place] [phone] [id number] Antony Ulrich Self - patient is the insured Medical (General) History Medical History History ICD Code Migraine G43.909
--- OUTSIDE RECORDS SUMMARY | 2025-02-20 14:14 | XMS_ITS | Data Portability ---
Author Organization [facility], [facility] Address [address] [facility] [address] [place] [address] Care Team Providers Care Brusher Hand Name Role Phone GRICEL FUENTES Sales Center Manager IVAN DIXON Primary Care Provider [phone] GRABIEL GIRARD Primary Care Provider [phone] Assessment No assessment recorded. Plan of Treatment Reminders Order Date Submit Date Provider Last Modified By Organization Details Last Modified Time Details Appointments Establis [facility] Patient 30 2025 01:00P M Charlie Turpin MD Not available Not available Not available Lab None recorded . Referral None recorded . Procedures lexiscan cardioli te stress test (PROC) - Thurs AM 2021 [email or web address] [place] [address] ([facility]), [address] [place], [address], 09/19/2021 12:49:19 Surgeries None recorded . Imaging electroc ardiogra m 2024 025 [email or web address] [facility], [address] [place], [address], 06/09/2024 13:35:56 electroc ardiogra m 2023 024 [email or web address] [facility], [address] [facility], [place], [address], 06/09/2023 09:35:21 electroc ardiogra m 2022 023 [email or web address] Not available 07/14/2022 15:18:14 electroc ardiogra m 2021 022 [email or web address] [facility], [address], [address], [place], [address], 08/13/2021 09:32:57 Medication Orders None recorded . Patient TargetsNo targets recorded. Patient Instructions Encounter Date Encounter Id Patient Instructions Last Modified By Organization Details Last Modified Time 08/13/2021 [id number] medical record request* - please send most recent labs with lipids [email or web address] Not available 09/02/2021 15:13:50 06/09/2023 [id number] medical record request* - please send most recent labs [email or web address] Not available 10/20/2023 08:13:22 06/09/2024 [id number] body mass index: care instructions jvafai Not [...] ation record ed. [email or web address] [facility] [address], [place], [address], 07/13/2020 09:50:52 08/14/19 22 08/13/2021 elect rocar diogr am No observ ation record ed. [email or web address] [facility] [address], [place], [address], 08/13/2021 09:24:25 08/14/19 elect rocar diogr am No observ ation record ed. jvafai Not Available 2021 09:10:30 08/16/19 22 08/15/2021 NM, myoca rdial perfu narayan scan, multi ple Patien t Name: ANTONY QUINN 80 [facility] [address] [place] [address] Radiol ogy ACCESS ION EXAM DATE/T DANIEL PROCED URE ORDERI NG STATUS PROVID ER - 022 NM Myocar dial DYANA GRIFFIN, Auth [id number] 10:27 EDT Perf Multi JONATH AN J [...] Admitt ing: DYANA GRIFFIN, LASHAY Odonnell ting: [facility] (Imaging) [address] [place], [address], 08/15/2021 11:30:24 07/15/19 23 07/14/2022 elect rocar diogr am No observ ation record ed. [email or web address] [facility] [address] [place], [address], 07/14/2022 14:46:17 07/15/19 23 elect rocar diogr am No observ ation record ed. [email or web address] Not Available 2023 09:26:39 06/09/19 24 06/09/2023 elect rocar diogr am No observ ation record ed. [facility] [address] [facility] [address], [place], [address], 06/09/2023 09:26:35 06/09/19 24 elect rocar diogr am No observ ation record ed. [email or web address] Not Available 2023 09:26:39 06/09/19 25 06/09/2024 elect rocar diogr am No observ ation record ed. [email or web address] [facility] [address] [place], [address], 06/09/2024 13:27:03 06/09/19 25 elect rocar diogr am No observ ation record ed. [email or web address] Not Available 2024 13:31:38 Result Notes Documentation Provider Name and Address Organization Details Recorded Time Nm, Myocardial Perfusion Scan, Multiple : Patient Name: ANTONY QUINN Location: [facility] [address] [place] [address] Radiology ACCESSION EXAM DATE/TIME PROCEDURE ORDERING STATUS PROVIDER - 08/15/2021 NM Myocardial DYANA GRIFFIN, Auth [id number] 10:27 EDT Perf Multi CHARLIE Hoffman (Verified) Rest/Stress Reason For Exam ([place] Myocardial Perf Multi Rest/Stress) Unexplained Chest Pain [...] am Signed By: GRICEL DASH MD Admitting: CHARILE TURPIN MD Consulting: Charlie Turpin MD [address] [facility] [address], [address], [facility] 08/15/2021 11:30:24 Problems Name Problem SNOMED Code Status Onset Date Resolution Date Notes Provider Name and Address Organization Details Recorded Time Coronary arteriosclerosi s 90161862 Active 2020 Charlie Turpin MD [address] [facility] ,[address], [place], [address], [facility] 3 14:44:04 Hyperlipidemia 40953011 Active 2024 Charlie Turpin MD [address] [facility] ,[address], [place], [address], [facility] 5 13:25:55 Notes:Some problems listed i n Document: #[id number] could not be added to this patient's chart. Please review this document and add these problems to the patient's chart manually as needed. Problem Notes None recorded. Procedures Surgical History Date Name Laterality Status Provider Name and Address Organization Details Recorded Time 04/20/19 10 [facility] 09:25:04 04/20/19 10 Knee Replacement completed [facility] 06/19/2020 09:25:31 Imaging Results None recorded. Procedure [...] Updated DateTime 4 190.5 cm 29.4 kg/m2 806196. 21 g 96 % 96 % 130/72 mm[Hg] Tiffanie Carr [facility] 4 09:16:31 Date Recorded Body height Body mass index (BMI) Body weight Oxygen saturation Oxygen saturation in Arterial blood by Pulse oximetry Heart rate Systolic And Diastolic Provider Name and Address Organization Details Last Updated DateTime 5 190.5 cm 28.1 kg/m2 895248. 28 g 94 % 94 % 69 /min 130/80 mm[Hg] Tiffanie Carr [facility] 5 13:16:27 Date Recorded Body height Heart rate Oxygen saturation Oxygen saturation in Arterial blood by Pulse oximetry Systolic And Diastolic Provider Name and Address Organization Details Last Updated DateTime 3 190.5 cm 91 /min 97 % 97 % 120/82 mm[Hg] Patricia Americo duncan [facility] 3 14:34:42 Date Recorded Body height Body mass index (BMI) Body weight Systolic And Diastolic Provider Name and Address Organization Details Last Updated DateTime 08/03/2020 190.5 cm 34 kg/m2 969748.52 g 136/82 mm[Hg] Juan Carlos Alvarado [facility] 08/03/2020 08:41:20 Date Recorded Body weight Heart rate Oxygen saturation Oxygen saturation in Arterial blood by Pulse oximetry Systolic And Diastolic Provider Name and Address Organization Details Last Updated DateTime 2 594563. 61 g 80 /min 98 % 98 % 132/84 mm[Hg] Robert Marin [facility] 2 09:08:23 Social History Question Answer Notes LastModified by Organizat ion Details LastModified Time Tobacco Smoking Status Former Smoker Quit 2009 and smoked for 10 yrs. [facility] [facility] [facility] 06/19/2020 09:24:26 Do You Have An Advance [...] Of Your Most Recent Tobacco Screening? 06/09/2024 [email or web address] Information not available 06/09/2024 Do You Have [...] 06/09/2023 Are you able to care for yourself independently? No Information not available 06/09/2024 Mental Status Question Answer Note LastModified by Organization D etails LastModified Time Do you feel stressed (tense, restless, nervous, or anxious, or unable to sleep at night)? TI37647-6 Information not available 06/09/2023 Family History Relationship [...] Diagnosis SNOMED-CT Code Diagnosis ICD10 Code Diagnosis IMO Codes Diagnosis Note [id number] Charlie Turpin MD [facility] [address] [address] 06/19/2020 08:46:58 06/19/2020 10:26:11 Coronary arteriosclerosis 23488203 I25.10 Coronary calcificat ions but no obstructiv e disease 04/2019. Given the calcium burden I am advising asa 81mg daily. Cardiomyopathy 11930782 I42.9 EF was 50% on LV-gram during cath. His BNP was low so I don't think he had or is having CHF but he never had a formal TTE to quantify his EF. We will get an echo. [id number] MD CHARLENE [facility] [address] [facility] [place] [address] 08/03/2020 08:33:05 08/03/2020 11:06:48 Coronary arteriosclerosis 92189736 I25.10 Coronary calcificat ions but no obstructiv e disease 04/2019. Given the calcium burden I am advising asa 81mg daily. Hyperlipidemia 04584996 E78.5 Goal LDL<70 Dyspnea 601372827 R06.00 Non-cardia c based on normal cath, normal echo. He is feeling better and is undergoing workup with Dr. Fuentes. [id number] Charlie Turpin MD [facility] [address] [place] [address] 08/13/2021 08:52:56 08/13/2021 09:32:57 Hyperlipidemia 03588571 E78.5 Goal LDL<70 - i believe he is due for a lipid panel. I will defer to Dr. Rios to get his routine labs. No labs were drawn in the ER. Coronary atherosclerosis 289785573 I25.[address] depression s [...] chest/arm/ jaw pain. They understand and agree. [id number] Charlie Turpin MD [facility] [address] [place] [address] 07/14/2022 14:10:46 07/14/2022 15:18:14 Pulmonary embolism 74050688 I26.99 Provoked due to LLE fractures and soft cast. Cont the Eliquis for at least 6 months, at least until the cast is off and he is able to ambulate. Coronary arteriosclerosis 10594699 I25.10 Coronary calcificat ions but no obstructiv e disease 04/2019. Given the calcium burden I am advising asa 81mg daily when he is off of the DOAC. [id number] Charlie Turpin MD [facility] [address] [facility] [place] [address] 06/09/2023 09:04:43 06/09/2023 09:35:20 Coronary arteriosclerosis 64621564 I25.10 Coronary calcificat ions but no obstructiv e disease 04/2019. Given the calcium burden I am advising asa 81mg daily when he is off of the DOAC. Pulmonary embolism 06101 003 I26.99 Provoked due to LLE fractures and soft cast. s/p Eliquis x 6 months Body mass index 25-29 - overweight 131301980 Z68.29 [id number] Charlie Turpin MD [facility] [address] [place] [address] 06/09/2024 13:07:31 06/09/2024 13:35:56 Coronary arteriosclerosis 84119586 I25.10 Coronary calcificat ions but no obstructiv e disease 04/2019. He is off of aspirin due to a lot of bruising. He has no angina. Hyperlipidemia 06709968 E78.5 Goal LDL<70 - cont the present dose of atorvastat in. Body mass index 25-29 - overweight 661592730 Z68.28 Health Concerns Section Related Observation LastModified by Organization Detai ls LastModified Time None Recorded Concern Status LastModified by Organization Details LastModified Time None Recorded Advance Directives Directive N: Payers Insurance Date Sequence Insurance Name Policy Number Policy Rousseau Covered Member ID Rousseau Member ID Guarantor Name 06/06/2024 2 [employer] (MEDICARE SUPPLEMENT) Antony Quinn [id number] Antony Quinn 06/06/2024 1 [place] Antony Quinn [id number] Antony Quinn 09/15/2022 [facility] Antony Quinn [id number] Antony Serg Notes Date Note Type Note Provider Name and Address Organization Details Recorded Time 08/03/2020 text/html Antony presents for cardiac evaluation. He states he does get short of breath at night, usually 2x/week when it is warmer in his room. He has had this happen for 2 months. He will usually get up, turn the AC back on and fall back asleep. Apr 2019 he had SOB, he [place] [facility] He underwent CTA chest. 5mm left lower lobe nodule wa noted. Coronary calcifications were also noted. Cath was performed and did not reveal significant obstructive disease. He saw Dr. uFentes and apparently further testing is to be performed at [facility]. An MRI was also ordered, due to claustrophobia he will have an open MRI. Imaging at [facility] revealed a cyst on his kidney and on his pancreas. He was also found to have a lung lesion. He had a sleep study about 2 years ago, he was told he was Ok and did not need CPAP. TTE done by me revealed normal EF, normal diastolic function and normal PA pressures and no significant valve disease. Charlie Turpin MD [address] [facility] [address], [place], [address], [facility] 08/03/2020 08:53:07 08/13/2021 text/html Antony presents for cardiac evaluation. He states he does get short of breath at night, usually 2x/week when it is warmer in his room. He has had this happen for 2 months. He will usually get up, turn the AC back on and fall back asleep. Apr 2019 he had SOB, he went to [place] [facility] He underwent CTA chest. 5mm left lower lobe nodule wa noted. Coronary calcifications were also noted. Cath was performed and did not reveal significant obstructive disease. He saw Dr. Fuentes and apparently further testing is to be performed at [facility]. An MRI was also ordered, due to claustrophobia he will have an open MRI. Imaging at [facility] revealed a cyst on his [...] and was evaluated in the ER at [facility]. He sees Dr. Rios tomorrow. He is here with his . He has no chest pain, pressure, dyspnea. He has chronic leg edema. Cath from 2019 was again reviewed, normal coronaries were noted. Charlie Turpin MD [address], [place], [address], [facility] 08/13/2021 10:29:40 07/14/2022 text/html Antony presents for follow up. Apr 2019 he had SOB, he went to [place] [facility] He underwent CTA chest. 5mm left lower lobe nodule wa noted. Coronary calcifications were also noted. Cath was performed and did not reveal significant obstructive disease.08/13/21: Antony fell over the weekend and was evaluated in the ER at [facility]. He sees Dr. Rios tomorrow. He is [...] have significant PE and was hospitalized at [facility] [place]/05/22-07/08[place]22. TTE was ok without RV strain. He was put on heparin to Eliquis. He was fairly immobilized from the leg. Charlie Turpin MD [address], [place], [address], [facility] 07/14/2022 14:52:42 06/09/2023 text/html Antony presents for follow up. Apr 2019 he had SOB, he went to the [facility] He underwent CTA chest. 5mm left lower lobe nodule wa noted. Coronary calcifications were also noted. Cath was performed and did not reveal significant obstructive disease.08/13/21: Antony fell over the weekend and was evaluated in the ER at [facility]. He sees Dr. Rios tomorrow. He is [...] have significant PE and was hospitalized at [facility] [place]/05/22-07/08/22. TTE was ok without RV strain. He was put on heparin to Eliquis. He was fairly immobilized from the leg. 06/09/23: Antony is off of Eliquis. He had swellin but that has improved. He has no CP, SOB. He has a pancreatic cyst and he is following at [facility]. Charlie Turpin MD [address] [facility] [address], [place], [address], [facility] 06/09/2023 09:40:21 06/09/2024 text/html Antony presents for follow up. Apr 2019 he had SOB, he went to the [facility] He underwent CTA chest. 5mm left lower lobe nodule wa noted. Coronary calcifications were also noted. Cath was performed and did not reveal significant obstructive disease.08/13/21: Antony fell over the weekend and was evaluated in the ER [place] [facility]. He sees Dr. Rios tomorrow. He is [...] have significant PE and was hospitalized at [facility] [place]05/22-07/08/22. TTE was ok without RV strain. He was put on heparin to Eliquis. He was fairly immobilized from the leg. 06/09/23: Antony is off of Eliquis. He had swellin but that has improved. He has no CP, SOB. He has a pancreatic cyst and he is following at [facility]. 06/09/24: Antony returns for follow up with his . The past year has been uneventful. Last labs 10/2023. Charlie Turpin MD [address], [place], [address], [facility] 06/09/2024 13:32:38
--- OUTSIDE RECORDS SUMMARY | 2025-02-20 14:14 | XMS_ITS | Clinical Summary ---
Author Organization [facility] Address [address] [place] [address] Care Team Providers Care Surgeon'S Assistant Name Role Phone Juan Mann MD Primary Care Provider Surgical History Surgery Date Site/Laterality Comments OTHER SURGICAL HISTORY PROCEDURE: [place] ARTHRP ACETBLR/PROX FEM PROSTC AGRFT/ALGRFT TOTAL KNEE ARTHROPLASTY PROCEDURE: [place] ARTHRP KNE CONDYLE&PLATU MEDIAL&LAT COMPARTMENTS Medical History [...] series) 2020 Cholesterol Screening (Lipid Panel) 03/22/2022 Falls Risk Assessment 03/22/2022 Hepatitis C Screening 03/22/2022 Social Influencers of Health Screening 03/22/2022 Depression Screening 04/20/2024 COVID-19 Vaccine (2023-2 5 season) 2024 Influenza Vaccine (#1) 2024 HIB Vaccines Aged [...] age to complete this topic Care Teams Surgeon'S Assistant Relationship Specialty Start Date End Date Juan Mann MD PCP - General 01/25/16
== END 2025-02-20 11:13 | disposition home or self-care (01) ==
LOC: HO.XRAY 11:12
PROVIDERS: PCP Internal Medicine; Visit Provider Hospitalist
DX: R91.1 Solitary pulmonary nodule (principal)
CPT/HCPCS: 71046

== ENCOUNTER → 2025-02-20 11:16 | Outpatient (BNV) | payer MEDICARE, SELFPAY | PROVIDERS: PCP Internal Medicine; Visit Provider Radiology Diagnostic Radiology | DX: R91.1 Solitary pulmonary nodule (principal); M47.815 Spondylosis without myelopathy or radiculopathy, thoracolumbar region; M41.85 Other forms of scoliosis, thoracolumbar region | CPT/HCPCS: 71046 ==

== ENCOUNTER 2025-02-28 12:54 | Outpatient (AMB) | payer MEDICARE, SELFPAY ==
--- OUTSIDE RECORDS SUMMARY | 2023-09-02 12:30 | XMS_ITS ---
Author Organization [facility] Address [address] [facility] [address] [place] [address] Care Team Providers Care Sprinkling System Installer Name Role Phone IVAN DIXON Primary Care Provider Lopez Lepe Unavailable [phone] Gilbert Valle Unavailable [phone] REASON FOR VISIT 1 month fu Encounters Encounter Location Date Provider Diagnosis [facility] [address] [facility] [address] [place] [address] 09/02/2023 Gilbert Valle Plan Of Treatment No Information Progress Notes * Antony QUINNDOB:1945 ( 79 yo M)Acc No.[id number]:09/02/2023 Progress Notes Patient: Antony Grande Provider: Augustus Valle MD :1945 A ge:78 Y S ex:Male Date:09/02/2023 Address:[address] [place] [address], [address], [place], [id number] Pcp:IVAN DIXON Subjective: * Chief Complaints: * 1 month fu Billing Information: * Procedure Codes: * Electronic signature of Lisa Valle MD on 02/28/2025 at 02:37 PM EST Sign off status: Pending * Provider: Augustus Valle MD Date: 0 09/02/2023 Generated for Patyi ng/Fazenong/eTransmitting on: 1 04/30/2024 02:37 PM EST
--- NOTE | 2025-02-28 12:58 | A.OFFVIS_ITS ---
Vital Signs 02/28/25 12:59 Height 6 ft 3 in Weight 241 lb 6.499 oz BMI 30.2 BP 138/62 Blood Pressure Location Rt brachial Position Sitting Pulse 67 Pulse Source Pulse Oximeter Pulse Oximetry (%) 94 Oxygen Delivery Method Room Air Intake Visit Reasons: Pulmonary Nodule/Same Day CXR [employer] Required: No Accompanied by: Spouse Allergies No Known Allergies Allergy (Verified 02/28/25 13:02) HPI Comments Details: The patient is a 79-year-old gentleman with a known history of pulmonary nodules was referred to us for further evaluation. From a respiratory status the patient does well. Denies any shortness of breath or cough. Typically lives half the year in [place] specially during the winter months. While he is there he does have a swimming. The patient did undergo a CT scan of the chest last in March 2021. the patient was noted to have 6 mm pulmonary nodule. When compared to 2019 had not significantly changed. Otherwise patient is doing well. There is no other parenchymal lung disease to further assess. The patient has not use any inhalers and he does not need any at this time. 02/26/2023 the patient is here for a pulmonary follow-up visit. Since we last spoke he was evaluated at [facility] with a CT scan of the abdomen. This is done in January 2023. I did personally review the images demonstrating a 5 mm pulmonary nodule in the left lower lobe. I compared to the CT scan he had back at [facility] radiology in appears that the nodule has not changed in a year. Therefore, no additional imaging is warranted at this time. The patient did however have the CT scan of the abdomen demonstrated on increasing pancreatic lesion. Therefore he did have an MRI and will be further evaluated at [facility] for this concerning finding. The patient will follow-up in a year's time with a CT scan of the chest. If any issues arise the patient can always call for an earlier assessment. 03/01/2024 the patient is here for pulmonary follow-up visit. Overall he is doing okay. He does have a cough. At times bronchospastic. The has noticed that he has been having some wheezing specially at nighttime. He the patient has been vaping. He understands the vaping will result in potential irritation to the airways. I did recommend edibles or tincture. He is going to consider. The patient did have a CT scan of the chest which I personally reviewed. I compared to the CT scan the head at the [facility]. The CT scan here has not been officially read yet. Although looking at the CT scan from 2021 I do not see any significant changes in the nodular densities. He does have some changes to the right base which could suggest that he is aspirating Lee microscopically. The patient does have more symptoms of coughing at nighttime. He is going to try to sleep elevated and avoid eating 3 hours before bedtime. Will have him follow-up with an x-ray through [address] off [address] scan specially since the nodules have been stable now since 2018. If the patient has any worsening symptoms prior to that he will call. I will send him a rescue inhaler that he can use now for his cough. He is going to try to cut down on the vaping. 02/28/2025 the patient is here for pulmonary follow-up visit. The patient overall has been doing well. Denies any shortness of breath or cough. He did have a chest x-ray done today which I personally reviewed with no acute changes. Just some mild very small amount of interstitial changes at the bases. We can look at his CAT scan from 2023 demonstrating some minimal interstitial changes along with his pulmonary nodule. The pulmonary nodule has not changed since 2021 which is reassuring. The patient overall is doing well he has not had to use his rescue inhaler. Will plan to follow-up in a year's time with a chest x- ray. If he develops any worsening symptoms he can always call for an earlier assessment. If his chest x-ray and follow-up are okay then we can just follow up as needed. [facility] Medical History (Updated 02/28/25 @ 19:56 by Cuba Britt MD) Wheezing Pulmonary nodule Social History Patient Tobacco Use Status: Former Tobacco user Tobacco use type: Cigarette Years Smoked: 40 Years Review of Systems Const Denies fever(s) Eyes Denies change in vision ENT Reports hearing loss Card Denies chest pain and Denies dyspnea on exertion Resp Denies cough and Denies dyspnea on exertion GI Reports no additional complaints Musc Reports arthralgias, Reports joint swelling and Reports limited range of motion Neuro Reports no additional complaints Irwin/Lymph Denies easy bleeding and Denies easy bruising Physical Exam Vital Signs: Last Vital Signs Pulse 67 02/28/25 12:59 BP 138/62 02/28/25 12:59 Pulse Ox 94 02/28/25 12:59 Oxygen Delivery Method Room Air 02/28/25 12:59 BMI result Body Mass Index 30.2 Const General: comfortable HEENT Head: Yes normal to inspection Eyes General: appearance normal, both eyes and all related structures Neck Neck: Yes supple Chest Chest palpation & inspection: normal inspection of the chest Resp Effort & Inspection: normal respiratory effort Auscultation: clear to auscultation bilaterally Cardio Rate: regular rate Rhythm: regular rhythm Heart sounds: S1 normal heart sound present and S2 normal heart sound present GI Auscultation: normal bowel sounds Extrem General: Yes no clubbing, cyanosis or edema Assessment & Plan Assessment & Plan (1) Pulmonary nodule: Code(s): R91.1 - Solitary pulmonary nodule Category: Medical (2) Wheezing: Code(s): R06.2 - Wheezing Category: Medical Plan Repeat CXR in 1 year consider LUC as needed F/U 1 yr Orders: Orders XR chest 2V Today R91.1 - Solitary pulmonary nodule Coding Level of Care Code Est Pt Level 4 (95593) Diagnoses Pulmonary nodule R91.1 Wheezing R06.2 Time Spent (min) 16
[2025-02-28 12:59] VITALS: BP 138/62; PULSE 67; O2SAT 94; BMI 30.2
--- OUTSIDE RECORDS SUMMARY | 2025-02-28 14:37 | XMS_ITS | Clinical Summary ---
Author Organization [facility] Address [address] [place], [place] [id number] Care Team Providers Care Formstone Fitter Name Role Phone Mariella Rios (Hist) Primary Care Provi larry Allergies No known active allergies Medications atorvastatin (LIPITOR) 40 mg tablet Take 1 tablet by mouth once daily. Active donepezil (ARICEPT) 10 mg tablet TAKE 1 TABLET(10MG) BY ORAL ROUTE AT BEDTIME DAILY 05/29/2023 Active memantine (NAMENDA) 5 mg tablet TAKE 1 TABLET(5MG) BY ORAL ROUTE DAILY 05/31/2023 Active escitalopram oxalate (LEXAPRO) 10 mg tablet Take 1 tablet by mouth once daily. Active ZENPEP 40,000-126,000- 168,000 unit delayed release capsule 1 CAPSULE BY MOUTH 3 TIMES A DAY,WITH EACH MEAL AND SNACK 03/11/2023 Active Active Problems Problem Noted Date Diagnosed Date Pancreas cyst 05/05/2014 IPMN (intraductal papillary mucinous neoplasm) 0 05/05/2014 Mixed hyperlipidemia Overview (06/17/2023): Hyperlipidemia Smoker Social History Tobacco Use Types Packs/Day Years Used Date Smoking Tobacco: Former Tobacco Cessation:Counseling Given: Not Answered Comments:quit 1998 Smoked 1ppd x 15 yrs Alcohol Use Standard Drinks/Week Comments Yes 0 (1 standard drink = 0.6 oz pur e alcohol) 2-4 glasses of wine daily Area Deprivation Index Answer Date Pratik rded National Score (1-100), lower number is lower ri sk 6 05/26/2023 State Score (1-10), lower number is lower risk 1 05/26/2023 Data from: https://www.neighborhoodatlas.medicine.[facility].edu/. Last address used for calculation [address] 05/26/2023 Sex and Gender Information Value Date Recorded Sex Assigned at Male 06/12/2023 9:38 AM EST Legal Sex Male 5:17 PM EST Gender Identity Male 06/12/2023 9:38 AM EST Sexual Orientation Not on file Last Filed Vital Signs Vital Sign Reading Time Taken Comments Blood Pressure 113/57 07/22/2023 1:10 PM EDT Pulse 58 07/22/2023 1:10 PM EDT Temperature 37.1 C (98.7 F) 06/17/2023 5:05 PM EST Respiratory Rate 16 07/22/2023 1:10 PM EDT Oxygen Saturation 95% 06/17/2023 5:35 PM EST Inhaled Oxygen Concentration - - Weight 105.3 kg (232 lb 1.6 oz) 07/22/2023 1:10 PM EDT Height 190.5 cm (6' 3 ) 07/22/2023 1:10 PM EDT Body Mass Index 29.01 07/22/2023 1:10 PM EDT Plan of Treatment Health Maintenance Due Date Last Done Comments Anxiety Screening 1963 Depression Screening 1963 DTaP,Tdap,Td Vaccine (1 - Tdap) 1964 Diabetes Screening 1990 Medicare Annual Wellness Visit 04/20/2010 Shingrix Vaccine (3 of 3) 05/05/2019 03/10/2019, 07/2011 RSV Vaccine (1 - 1-dose 75+ series) 2020 Advance Directive Discussion 04/20/2024 Covid-19 Vaccine (3 - 2024-2 6 season) 2024 05/25/2020, 05/08/2020 Influenza Vaccine (#1) 2024 8, 12/29/2011, 03/04/2011, Additional history exists Pneumococcal Vaccine: 50+ Completed 2022, 02/17/2019, 03/04/2011 Insurance [facility] [employer] Care Teams Formstone Fitter Relationship Specialty Start Date End Date Mariella Rios (Hist) PCP - General 03/29/13
--- OUTSIDE RECORDS SUMMARY | 2025-02-28 14:37 | XMS_ITS | Encounter Summary ---
Author Organization [facility] Address [address] [place], [place] [id number] Care Team Providers Care Coal Miner Name Role Phone Mariella Rios (Hist) Primary Care Provi larry Source Comments In the event this information is protected by the Federal Confidentiality of Alcohol and Drug AbusePatient Records regulations: The Federal rules restrict any use of the information to criminally investigate or prosecute any alcohol or drug abuse patient.[facility] Encounter Details Date Type Department Care Team (Late st Contact Info) Description 05/26/2023 Patient Msg Gastroenterology [address] [place] [address] Provider, [facility] NOTICE OF APPOINTMENT CANCELLATION 05/26/2023 Social History Tobacco Use Types Packs/Day Years Used Date Smoking Tobacco: Former Comments:quit 1998 Smoked 1p pd x 15 yrs Alcohol Use Standard Drinks/Week Comments Yes 0 (1 standard drink = 0.6 oz pur e alcohol) 2-4 glasses of wine daily Area Deprivation Index Answer Date Pratik rded National Score (1-100), lower number is lower ri sk 6 05/26/2023 State Score (1-10), lower number is lower risk 1 05/26/2023 Data from: https://www.neighborhoodatlas.medicine.[facility]/. Last address used for calculation [address] 05/26/2023 Sex and Gender Information Value Date Recorded Sex Assigned at Male 06/12/2023 9:38 AM EST Legal Sex Male 5:17 PM EST Gender Identity Male 06/12/2023 9:38 AM EST Sexual Orientation Not on file documented as of this encounter Functional Status * Are you deaf or do you have serious difficulty hearing? Answer Date of Assessment Author No 05/04/2014 1:45 PM EST Gaby Dodson Ma * Are you blind or do you have serious difficulty seeing, even when wearing glasses? Answer Date of Assessment Author No 05/04/2014 1:45 PM EST Gaby Dodson Ma * Do you have serious difficulty walking or climbing stairs? Answer Date of Assessment Author No 05/04/2014 1:45 PM Gaby Joseph Ma * Do you have difficulty dressing or bathing? Answer Date of Assessment Author No 05/04/2014 1:45 PM Gaby Joseph Ma * Because of a physical, mental, or emotional condition, do you have difficulty doing errands alone such as visiting a doctor's office or shopping? Answer Date of Assessment Author No 05/04/2014 1:45 PM Gaby Joseph Ma documented as of this encounter Mental Status * Because of a physical, mental, or emotional condition, do you have serious difficulty concentrating, remembering, or making decisions? Answer Entry Date Author No 05/04/2014 1:45 PM Gaby Joseph Ma documented in this encounter Plan of Treatment Not on file documented as of this encounter Visit Diagnoses Not on filedocumented in this encounter Care Teams Coal Miner Relationship Specialty Start Date End Date Mariella Rios (Hist) PCP - General 03/29/13 documented as of this encounter
--- OUTSIDE RECORDS SUMMARY | 2025-02-28 14:37 | XMS_ITS | Encounter Summary ---
Author Organization [facility] Address [address] [place], [place] [id number] Care Team Providers Care Residential Caregiver Name Role Phone Mariella Rios (Hist) Primary Care Provi [facility] Source Comments In the event this information is protected by the Federal Confidentiality of Alcohol and Drug AbusePatient Records regulations: The Federal rules restrict any use of the information to criminally investigate or prosecute any alcohol or drug abuse patient.[facility] Encounter Details Date Type Department Care Team (Late st Contact Info) Description 07/10/2023 Abstract Gastroenterology [address] [place] [address] Marti Johnson, COMMUNICATIONS DEPARTMENT CHAIRPERSON [address] [place] [address] Social History Tobacco Use Types Packs/Day Years Used Date Smoking Tobacco: Former Comments:quit 1998 Smoked 1p pd x 15 yrs Alcohol Use Standard Drinks/Week Comments Yes 0 (1 standard drink = 0.6 oz pur e alcohol) 2-4 glasses of wine daily Area Deprivation Index Answer Date Pratik rded National Score (1-100), lower number is lower ri 6 05/26/2023 State Score (1-10), lower number is lower risk 1 05/26/2023 Data from: https://www.neighborhoodatlas.[facility].edu/. Last address used for calculation [address] [...] Gaby Joseph Ma * Do you have serious difficulty [...] on filedocumented in this encounter Care Teams Residential Caregiver Relationship Specialty Start Date End Date Mariella Rios (Hist) PCP - General 03/29/13 documented as of this encounter
--- OUTSIDE RECORDS SUMMARY | 2025-02-28 14:37 | XMS_ITS | Patient Health Record ---
Author Organization [facility] Address [address] [place] [address] Care Team Providers Care Entry Level Sales Representative Name Role Phone PRISCILA PARR Primary Care Provider Uli Davis Unavailable [phone] Allergies No Known Allergies Reason For Referral Reason Fall left shoulder p ain and osteoarthritis may need a cortisone shot Please evaluate and treat Diagnosis 1 Primary osteoarthrit is, left shoulder (M19.012) Referral Organization [facility] ter Referring Provider First Name Uli Referring Provider Last Name Susan Referring Provider Speciality Internal M edicine Referred Provider Specialty Orthopedic S urgery General Notes Please call the lyudmila ent to schedule the appointment, Encounter Kian garcia [place] 02/23/2025 07:28:00 AM > Referral Priority Routine Medications Medication SIG (Take, Route, Frequency, Duration) Notes Start Date End Date Status Zenpep Active Donepezil HCl 10 MG 1 tablet at bedtime Orally Once a day Active Escitalopram Oxalate 20 MG 1 tablet Oral ly Once a day Active Lipitor 40 MG 1 tablet Orally Once a day Active Memantine HCl 5 MG 1 tablet Orally twic e a day Active Problems Problem Type SNOMED Code ICD Code Onset Dates Problem Status W/U Status Risk Notes Problem Generalized anxiety disorder (45286885) Generalized anxiety disorder (F41.1) Active confirmed Problem Anxiety disorder (036970910) Anxiety disorder, unspecified (F41.9) Active confirmed Problem Alzheimer's disease with late onset (553163975) Alzheimer's disease with late onset (G30.1) Active confirmed Problem Essential hypertension (66482805) Essential (primary) hypertension (I10) Active confirmed Problem Polyarthritis (927554793) 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) Active confirmed Problem Localized, primary osteoarthritis of the shoulder region (445818992) Primary osteoarthritis, left shoulder (M19.012) Active confirmed Problem Unspecified dementia, mild, with agitation (F03.A11) Active confirmed Problem Mixed hyperlipidemia (993472996) Hyperlipidemia, mixed (E78.2) Active confirmed Vital Signs Heart Rate 72 /min 02/22/2025 Temperature 98.3 degrees Fahrenheit 02/22/2025 Blood pressure diastolic 80 mm Hg 02/22/2025 Oximetry 95 % 02/22/2025 Height 6'3'' in 02/22/2025 Blood pressure systolic 132 mm Hg 02/22/2025 Weight 240.6 lbs 02/22/2025 BMI 30.07 kg/m2 02/22/2025 Encounters Encounter Location Date Provider Diagnosis [address] [address] 02/22/2025 [place] [facility] Hyperlipidemia, mixe d E78.2 ; Alzheimer's disease with late onset G30.1 ; Essential (primary) hypertension I10 ; Other polyosteoarthritis M15.8 ; Primary osteoarthritis, left shoulder M19.012 ; Generalized anxiety disorder F41.1 and Anxiety disorder, unspecified F41.[address] [place] [address] 02/23/2025 [place] Assessments Encounter Date Diagnosis (ICD Code) Assessment Notes Treatment Notes Treatment Clinical Notes Section Notes 02/22/2025 Alzheimer's disease with late onset (ICD-10 - G30.1) 79-year-old gentleman with Alzheimer's dementia hyperlipidemia osteoarthritis came in for a new PCP visit. Plan as following. Alzheimer's dementia, patient has neurocognitive testing which was positive and also imaging per patient's . He has been on Aricept 10 mg daily and also takes memantine 5 mg daily. Is currently still independent in all his ADLs but he does not drive. He walks with a walker. They want a neurology referral. We will provide one today. Patient is DNR/DNI his healthcare proxy is his Juan Hypertension screening blood pressure stable at 132/80 he is not on any medications. Will check a basic metabolic panel and a CBC. Hyperlipidemia check a lipid profile continue with Lipitor 40 mg daily. Left shoulder injury and history of osteoarthritis of multiple joints, patient has limited range of motion in the left shoulder and has been complaining of pain will get an x-ray of the left shoulder if shows no fracture and osteoarthritis we will refer to orthopedics to see if he would benefit from a cortisone injection. COPD, he follows with Dr. Britt,he is not on any inhalers Generalized anxiety disorder and history of depression currently stable he takes ecitalopram 20 mg daily Pancreatic and liver cyst he follows with gastroenterology at [facility] and has twice a year imaging they are following all the testing. 02/22/2025 Hyperlipidemia, mixe d (ICD-10 - E78.2) 79-year-old gentleman with Alzheimer's dementia hyperlipidemia osteoarthritis came in for a new PCP visit. Plan as following. Alzheimer's dementia, patient has neurocognitive testing which was positive and also imaging per patient's . He has been on Aricept 10 mg daily and also takes memantine 5 mg daily. Is currently still independent in all his ADLs but he does not drive. He walks with a walker. They want a neurology referral. We will provide one today. Patient is DNR/DNI his healthcare proxy is his Juan Hypertension screening blood pressure stable at 132/80 he is not on any medications. Will check a basic metabolic panel and a CBC. Hyperlipidemia check a lipid profile continue with Lipitor 40 mg daily. Left shoulder injury and history of osteoarthritis of multiple joints, patient has limited range of motion in the left shoulder and has been complaining of pain will get an x-ray of the left shoulder if shows no fracture and osteoarthritis we will refer to orthopedics to see if he would benefit from a cortisone injection. COPD, he follows with Dr. Britt,he is not on any inhalers Generalized anxiety disorder and history of depression currently stable he takes ecitalopram 20 mg daily Pancreatic and liver cyst he follows with gastroenterology at [facility] and has twice a year imaging they are following all the testing. 02/22/2025 Essential (primary) hypertension (ICD-10 - I10) 79-year-old gentleman with Alzheimer's dementia hyperlipidemia osteoarthritis came in for a new PCP visit. Plan as following. Alzheimer's dementia, patient has neurocognitive testing which was positive and also imaging per patient's . He has been on Aricept 10 mg daily and also takes memantine 5 mg daily. Is currently still independent in all his ADLs but he does not drive. He walks with a walker. They want a neurology referral. We will provide one today. Patient is DNR/DNI his healthcare proxy is his [place] Hypertension screening blood pressure stable at 132/80 he is not on any medications. Will check a basic metabolic panel and a CBC. Hyperlipidemia check a lipid profile continue with Lipitor 40 mg daily. Left shoulder injury and history of osteoarthritis of multiple joints, patient has limited range of motion in the left shoulder and has been complaining of pain will get an x-ray of the left shoulder if shows no fracture and osteoarthritis we will refer to orthopedics to see if he would benefit from a cortisone injection. COPD, he follows with Dr. Britt,he is not on any inhalers Generalized anxiety disorder and history of depression currently stable he takes ecitalopram 20 mg daily Pancreatic and liver cyst he follows with gastroenterology at [facility] and has twice a year imaging they are following all the testing. 02/22/2025 Other polyosteoarthritis (ICD-10 - M15.8) 79-year-old gentleman with Alzheimer's dementia hyperlipidemia osteoarthritis came in for a new PCP visit. Plan as following. Alzheimer's dementia, patient has neurocognitive testing which was positive and also imaging per patient's . He has been on Aricept 10 mg daily and also takes memantine 5 mg daily. Is currently still independent in all his ADLs but he does not drive. He walks with a walker. They want a neurology referral. We will provide one today. Patient is DNR/DNI his healthcare proxy is his [place] Hypertension screening blood pressure stable at 132/80 he is not on any medications. Will check a basic metabolic panel and a CBC. Hyperlipidemia check a lipid profile continue with Lipitor 40 mg daily. Left shoulder injury and history of osteoarthritis of multiple joints, patient has limited range of motion in the left shoulder and has been complaining of pain will get an x-ray of the left shoulder if shows no fracture and osteoarthritis we will refer to orthopedics to see if he would benefit from a cortisone injection. COPD, he follows with Dr. Britt,he is not on any inhalers Generalized anxiety disorder and history of depression currently stable he takes ecitalopram 20 mg daily Pancreatic and liver cyst he follows with gastroenterology at [facility] and has twice a year imaging they are following all the testing. 02/22/2025 Primary osteoarthritis, left shoulder (ICD-10 - M19.012) 79-year-old gentleman with Alzheimer's dementia hyperlipidemia osteoarthritis came in for a new PCP visit. Plan as following. Alzheimer's dementia, patient has neurocognitive testing which was positive and also imaging per patient's . He has been on Aricept 10 mg daily and also takes memantine 5 mg daily. Is currently still independent in all his ADLs but he does not drive. He walks with a walker. They want a neurology referral. We will provide one today. Patient is DNR/DNI his healthcare proxy is his [place] Hypertension screening blood pressure stable at 132/80 he is not on any medications. Will check a basic metabolic panel and a CBC. Hyperlipidemia check a lipid profile continue with Lipitor 40 mg daily. Left shoulder injury and history of osteoarthritis of multiple joints, patient has limited range of motion in the left shoulder and has been complaining of pain will get an x-ray of the left shoulder if shows no fracture and osteoarthritis we will refer to orthopedics to see if he would benefit from a cortisone injection. COPD, he follows with Dr. Britt,he is not on any inhalers Generalized anxiety disorder and history of depression currently stable he takes ecitalopram 20 mg daily Pancreatic and liver cyst he follows with gastroenterology at [facility] and has twice a year imaging they are following all the testing. 02/22/2025 Generalized anxiety disorder (ICD-10 - F41.1) 79-year-old gentleman with Alzheimer's dementia hyperlipidemia osteoarthritis came in for a new PCP visit. Plan as following. Alzheimer's dementia, patient has neurocognitive testing which was positive and also imaging per patient's . He has been on Aricept 10 mg daily and also takes memantine 5 mg daily. Is currently still independent in all his ADLs but he does not drive. He walks with a walker. They want a neurology referral. We will provide one today. Patient is DNR/DNI his healthcare proxy is his [place] Hypertension screening blood pressure stable at 132/80 he is not on any medications. Will check a basic metabolic panel and a CBC. Hyperlipidemia check a lipid profile continue with Lipitor 40 mg daily. Left shoulder injury and history of osteoarthritis of multiple joints, patient has limited range of motion in the left shoulder and has been complaining of pain will get an x-ray of the left shoulder if shows no fracture and osteoarthritis we will refer to orthopedics to see if he would benefit from a cortisone injection. COPD, he follows with Dr. Britt,he is not on any inhalers Generalized anxiety disorder and history of depression currently stable he takes ecitalopram 20 mg daily Pancreatic and liver cyst he follows with gastroenterology at [facility] and has twice a year imaging they are following all the testing. 02/22/2025 Anxiety disorder, unspecified (ICD-10 - F41.9) 79-year-old gentleman with Alzheimer's dementia hyperlipidemia osteoarthritis came in for a new PCP visit. Plan as following. Alzheimer's dementia, patient has neurocognitive testing which was positive and also imaging per patient's . He has been on Aricept 10 mg daily and also takes memantine 5 mg daily. Is currently still independent in all his ADLs but he does not drive. He walks with a walker. They want a neurology referral. We will provide one today. Patient is DNR/DNI his healthcare proxy is his [place] Hypertension screening blood pressure stable at 132/80 he is not on any medications. Will check a basic metabolic panel and a CBC. Hyperlipidemia check a lipid profile continue with Lipitor 40 mg daily. Left shoulder injury and history of osteoarthritis of multiple joints, patient has limited range of motion in the left shoulder and has been complaining of pain will get an x-ray of the left shoulder if shows no fracture and osteoarthritis we will refer to orthopedics to see if he would benefit from a cortisone injection. COPD, he follows with Dr. Britt,he is not on any inhalers Generalized anxiety disorder and history of depression currently stable he takes ecitalopram 20 mg daily Pancreatic and liver cyst he follows with gastroenterology at [facility] and has twice a year imaging they are following all the testing. Plan Of Treatment Pending Test Test Name Order Date Xray: Shoulder Left-Min 2 Vws 02/22/2025 Future Test Test Name Order Date CBC with Diff, Platelet, [id number] 08/2024 Lipid Panel With LDL/HDL [id number] Comp. Metabolic Panel [id number] 2024 Next Appt Details Provider Name:Uli Davis, 0 11/14/2025 02:30:00 PM, [address] [place] [address], [place], [address], Insurance Providers Payer Name Payer Address Payer Phone Subscriber Number Group Number Insured Name Patient Relationship to Insured Coverage Start Date Coverage End Date Medicare [address] [place] [id number] Antony Ulrich Self - patient is the insured 1 [employer] Supplement [address] [place] [address] [id number] Antony Ulrich Self - patient is the insured 3 Medical (General) History Medical History History ICD Code Alzheimer's dementia Hyperlipidemia Liver cyst Pancreatic cyst COPD followed by Dr. Britt Multiple falls Unsteady gait Surgical History Surgery Date(Month/Year) bilateral hip surgery and replacement. Left knee meniscal tear repair
--- OUTSIDE RECORDS SUMMARY | 2025-02-28 14:37 | XMS_ITS | Data Portability ---
Author Organization [facility], [facility] Address [address] [facility] [place] [address] [place] [address] Care Team Providers Care Hvac Service Technician Name Role Phone GRICEL FUENTES Nozzle Tender [phone] IVAN DIXON Primary Care Provider [phone] GRABIEL GIRARD Primary Care Provider [phone] Assessment No assessment recorded. Plan of Treatment Reminders Order Date Submit Date Provider Last Modified By Organization Details Last Modified Time Details Appointments Establis [facility] Patient 30 2025 01:00P Milo Turpin MD Not available Not available Not available Lab None recorded . Referral None recorded . Procedures lexiscan cardioli te stress test (PROC) - Thurs AM 2021 [email or web address] [place] [address] ([facility]), [address] [place], [address], 09/19/2021 12:49:19 Surgeries None recorded . Imaging electroc ardiogra m 2024 025 [email or web address] [facility], [address] [place], [address], 06/09/2024 13:35:56 electroc ardiogra m 2023 024 [email or web address] [facility], [address] [facility], [place], [address], 06/09/2023 09:35:21 electroc ardiogra m 2022 023 Not available 07/14/2022 15:18:14 electroc ardiogra m 2021 022 [email or web address] [facility], [address], [address], [place], [address], 08/13/2021 09:32:57 Medication Orders None recorded . Patient TargetsNo targets recorded. Patient Instructions Encounter Date Encounter Id Patient Instructions Last Modified By Organization Details Last Modified Time 08/13/2021 [id number] medical record request* - please send most recent labs with lipids [email or web address] Not available 09/02/2021 15:13:50 06/09/2023 [id number] medical record request* - please send most recent labs [email or web address] Not available 10/20/2023 08:13:22 06/09/2024 [id number] body mass index: care instructions [email or web address] Not [...] ation record ed. [email or web address] [facility] [address], [place], [address], 07/13/2020 09:50:52 08/14/19 22 08/13/2021 elect rocar diogr am No observ ation record ed. [email or web address] [facility] [address], [place], [address], 08/13/2021 09:24:25 08/14/19 elect rocar diogr am No observ ation record ed. jvafai Not Available 2021 09:10:30 08/16/19 22 08/15/2021 NM, myoca rdial perfu narayan scan, multi ple Patien t Name: ANTONY QUINN 80 [facility]ati [facility] [address] [place] [address] Radiol ogy ACCESS ION EXAM DATE/T DANIEL PROCED URE ORDERI NG STATUS PROVID ER - 022 NM Myocar dial DYANA GRIFFIN, Auth [id number] 10:27 EDT Perf Multi JONATH AN J [...] Admitt ing: DYANA GRIFFIN, LASHAY Odonnell ting: [facility] (Imaging) [address] [place], [address], 08/15/2021 11:30:24 07/15/19 23 07/14/2022 elect rocar diogr am No observ ation record ed. [email or web address] [facility] [address] [place], [address], 07/14/2022 14:46:17 07/15/19 23 elect rocar diogr am No observ ation record ed. jvafai Not Available 2023 09:26:39 06/09/19 24 06/09/2023 elect rocar diogr am No observ ation [facility] [address] [facility] [address], [place], [address], 06/09/2023 09:26:35 06/09/19 24 elect rocar diogr am No observ ation record ed. jvafai Not Available 2023 09:26:39 06/09/19 25 06/09/2024 elect rocar diogr am No observ ation record ed. [email or web address] [facility] [address] [place], [address], 06/09/2024 13:27:03 06/09/19 25 elect rocar diogr am No observ ation record ed. jvafai Not Available 2024 13:31:38 Result Notes Documentation Provider Name and Address Organization Details Recorded Time Nm, Myocardial Perfusion Scan, Multiple : Patient Name: ANTONY QUINN Location: [facility] [address] [place] [address] Radiology ACCESSION EXAM DATE/TIME PROCEDURE ORDERING STATUS PROVIDER - 08/15/2021 NM Myocardial DYANA GRIFFIN, Auth [id number] 10:27 EDT Perf Multi CHARLIE Hoffman (Verified) Rest/Stress Reason For Exam (AR Myocardial Perf Multi Rest/Stress) Unexplained Chest Pain [...] TURPIN MD Consulting: Charlie Turpin MD [address] [facility] [address], [address], [facility] 08/15/2021 11:30:24 Problems Name Problem SNOMED Code Status Onset Date Resolution Date Notes Provider Name and Address Organization Details Recorded Time Coronary arteriosclerosi s 28656614 Active 2020 Charlie Turpin MD [address] [facility] ,[address], [place], [address], [facility] 3 14:44:04 Hyperlipidemia 03920420 Active 2024 Charlie Turpin MD [address] [facility] ,[address], [place], [address], [facility] 5 13:25:55 Notes:Some problems listed i n Document: #[id number] could not be added to this patient's chart. Please review this document and add these problems to the patient's chart manually as needed. Problem Notes None recorded. Procedures Surgical History Date Name Laterality Status Provider Name and Address Organization Details Recorded Time 04/20/19 10 [facility] 09:25:04 04/20/19 10 Knee Replacement completed [facility] 06/19/2020 09:25:31 Imaging Results None recorded. [...] Updated DateTime 4 190.5 cm 29.4 kg/m2 306397. 21 g 96 % 96 % 130/72 mm[Hg] Tiffanie Carr [facility] 4 09:16:31 Date Recorded Body height Body mass index (BMI) Body weight Oxygen saturation Oxygen saturation in Arterial blood by Pulse oximetry Heart rate Systolic And Diastolic Provider Name and Address Organization Details Last Updated DateTime 5 190.5 cm 28.1 kg/m2 835672. 28 g 94 % 94 % 69 /min 130/80 mm[Hg] Tiffanie Carr [facility] 5 13:16:27 Date Recorded Body height Heart rate Oxygen saturation Oxygen saturation in Arterial blood by Pulse oximetry Systolic And Diastolic Provider Name and Address Organization Details Last Updated DateTime 3 190.5 cm 91 /min 97 % 97 % 120/82 mm[Hg] Patricia Americo duncan [facility] 3 14:34:42 Date Recorded Body height Body mass index (BMI) Body weight Systolic And Diastolic Provider Name and Address Organization Details Last Updated DateTime 08/03/2020 190.5 cm 34 kg/m2 103927.52 g 136/82 mm[Hg] Juan Carlos Alvarado [facility] 08/03/2020 08:41:20 Date Recorded Body weight Heart rate Oxygen saturation Oxygen saturation in Arterial blood by Pulse oximetry Systolic And Diastolic Provider Name and Address Organization Details Last Updated DateTime 2 053477. 61 g 80 /min 98 % 98 % 132/84 mm[Hg] Robert Marin [facility] 2 09:08:23 Social History Question Answer Notes LastModified by Organizat ion Details LastModified Time Tobacco Smoking Status Former Smoker Quit 2009 and smoked for 10 yrs. [facility] 06/19/2020 09:24:26 Do You Have An Advance [...] No Information not available 06/19/2020 [facility] In[facility]i on not available 06/09/2023 What Was The Date Of Your Most Recent Tobacco Screening? 06/09/2024 [email or web address] Information not available 06/09/2024 Do You Have [...] anxious, or unable to sleep at night)? II00103-3 Information not available 06/09/2023 Family History Relationship [...] Loss Y Heart Attack (Myocardial Infarction) N Cancer N Heart Disease/Valve Disease N Heart Rhythm Problem (Palpitations) N Liver Disease/Hepatitis N Carotid Disease N Implantable Pacemaker/Defibrillator/AICD N Stroke/TIA N Prior Blood Transfusion N Bleeding Problems N Arthritis Rheumatoid N Syncope or Passing Out N HIV [...] ICD10 Code Diagnosis IMO Codes Diagnosis Note [id number] Charlie Turpin MD [facility] [address] [address] 06/19/2020 08:46:58 06/19/2020 10:26:11 Coronary arteriosclerosis 63773785 I25.10 Coronary calcificat ions but no obstructiv e disease 04/2019. Given the calcium burden I am advising asa 81mg daily. Cardiomyopathy 38409257 I42.9 EF was 50% on LV-gram during cath. His BNP was low so I don't think he had or is having CHF but he never had a formal TTE to quantify his EF. We will get an echo. [id number] MD CHARLENE [facility] [address] [facility] [place] [address] 08/03/2020 08:33:05 08/03/2020 11:06:48 Coronary arteriosclerosis 05686426 I25.10 Coronary calcificat ions but no obstructiv e disease 04/2019. Given the calcium burden I am advising asa 81mg daily. Hyperlipidemia 69314442 E78.5 Goal LDL<70 Dyspnea 409521933 R06.00 Non-cardia c based on normal cath, normal echo. He is feeling better and is undergoing workup with Dr. Fuentes. [id number] Charlie Turpin MD [facility] [address] [place] [address] 08/13/2021 08:52:56 08/13/2021 09:32:57 Hyperlipidemia 35454045 E78.5 Goal LDL<70 - i believe he is due for a lipid panel. I will defer to Dr. Rios to get his routine labs. No labs were drawn in the ER. Coronary atherosclerosis 987521779 I25.[address] depression s [...] chest/arm/ jaw pain. They understand and agree. [id number] Charlie Turpin MD [facility] [address] [place] [address] 07/14/2022 14:10:46 07/14/2022 15:18:14 Pulmonary embolism 52457310 I26.99 Provoked due to LLE fractures and soft cast. Cont the Eliquis for at least 6 months, at least until the cast is off and he is able to ambulate. Coronary arteriosclerosis 34156474 I25.10 Coronary calcificat ions but no obstructiv e disease 04/2019. Given the calcium burden I am advising asa 81mg daily when he is off of the DOAC. [id number] Charlie Turpin MD [facility] [address] [facility] [place] [address] 06/09/2023 09:04:43 06/09/2023 09:35:20 Coronary arteriosclerosis 35306905 I25.10 Coronary calcificat ions but no obstructiv e disease 04/2019. Given the calcium burden I am advising asa 81mg daily when he is off of the DOAC. Pulmonary embolism 07139 003 I26.99 Provoked due to LLE fractures and soft cast. s/p Eliquis x 6 months Body mass index 25-29 - overweight 845848718 Z68.29 [id number] Charlie Turpin MD [facility] [address] [place] [address] 06/09/2024 13:07:31 06/09/2024 13:35:56 Coronary arteriosclerosis 81808537 I25.10 Coronary calcificat ions but no obstructiv e disease 04/2019. He is off of aspirin due to a lot of bruising. He has no angina. Hyperlipidemia 06281479 E78.5 Goal LDL<70 - cont the present dose of atorvastat in. Body mass index 25-29 - overweight 055777114 Z68.28 Health Concerns Section Related Observation LastModified by Organization Detai ls LastModified Time None Recorded Concern Status LastModified by Organization Details LastModified Time None Recorded Advance Directives Directive N: Payers Insurance Date Sequence Insurance Name Policy Number Policy Rousseau Covered Member ID Rousseau Member ID Guarantor Name 06/06/2024 2 [employer] (MEDICARE SUPPLEMENT) Antony Quinn [id number] Antony Quinn 06/06/2024 1 [place] Antony Quinn [id number] Antony Quinn 09/15/2022 [facility] Antony Quinn [id number] Antony Serg Notes Date Note Type [...] he had SOB, he went to the [facility]. He underwent CTA chest. 5mm left lower lobe nodule wa noted. Coronary calcifications were also noted. Cath was performed and did not reveal significant obstructive disease. He saw Dr. Fuentes and apparently further testing is to be performed at [facility]. An MRI was also ordered, due to claustrophobia he will have an open MRI. Imaging at [facility] revealed a cyst on his kidney and on his pancreas. He was also found to have a lung lesion. He had a sleep study about 2 years ago, he was told he was Ok and did not need CPAP. TTE done by me revealed normal EF, normal diastolic function and normal PA pressures and no significant valve disease. Charlie Turpin MD [address] [facility] [address], [place], [address], [facility] 08/03/2020 08:53:07 08/13/2021 text/html Antony presents for cardiac evaluation. He states he does get short of breath at night, usually 2x/week when it is warmer in his room. He has had this happen for 2 months. He will usually get up, turn the AC back on and fall back asleep. Apr 2019 he had SOB, he went to the [facility]. He underwent CTA chest. 5mm left lower lobe nodule wa noted. Coronary calcifications were also noted. Cath was performed and did not reveal significant obstructive disease. He saw Dr. Fuentes and apparently further testing is to be performed at [facility]. An MRI was also ordered, due to claustrophobia he will have an open MRI. Imaging at [facility] revealed a cyst on his kidney and [...] and was evaluated in the ER at [facility]. He sees Dr. Rios tomorrow. He is here with his . He has no chest pain, pressure, dyspnea. He has chronic leg edema. Cath from 2019 was again reviewed, normal coronaries were noted. Charlie Turpin MD [address], [place], [address], [facility] 08/13/2021 10:29:40 07/14/2022 text/html Antony presents for follow up. Apr 2019 he had SOB, he went to the [facility]. He underwent CTA chest. 5mm left lower lobe nodule wa noted. Coronary calcifications were also noted. Cath was performed and did not reveal significant obstructive disease.08/13/21: Antony fell over the weekend and was evaluated in the ER at [facility]. He sees Dr. Rios [...] have significant PE and was hospitalized at [facility] 07/05/22-07/08/22. TTE was ok without RV strain. He was put on heparin to Eliquis. He was fairly immobilized from the leg. Charlie Turpin MD [address], [place], [address], [facility] 07/14/2022 14:52:42 06/09/2023 text/html Antony presents for follow up. Apr 2019 he had SOB, he went to the [facility]. He underwent CTA chest. 5mm left lower lobe nodule wa noted. Coronary calcifications were also noted. Cath was performed and did not reveal significant obstructive disease.08/13/21: Antony fell over the weekend and was evaluated in the ER at [facility]. He sees Dr. Rios [...] have significant PE and was hospitalized at [facility] 07/05/22-07/08/22. TTE was ok without RV strain. He was put on heparin to Eliquis. He was fairly immobilized from the leg. 06/09/23: Antony is off of Eliquis. He had swellin but that has improved. He has no CP, SOB. He has a pancreatic cyst and he is following at [facility]. Charlie Turpin MD [address] [facility] [address], [place], [address], [facility] 06/09/2023 09:40:21 06/09/2024 text/html Antony presents for follow up. Apr 2019 he had SOB, he went to the [facility]. He underwent CTA chest. 5mm left lower lobe nodule wa noted. Coronary calcifications were also noted. Cath was performed and did not reveal significant obstructive disease.08/13/21: Antony fell over the weekend and was evaluated in the ER at [facility]. He sees Dr. Rios [...] have significant PE and was hospitalized at [facility] 07/05/22-07/08/22. TTE was ok without RV strain. He was put on heparin to Eliquis. He was fairly immobilized from the leg. 06/09/23: Antony is off of Eliquis. He had swellin but that has improved. He has no CP, SOB. He has a pancreatic cyst and he is following at [facility]. 06/09/24: Antony returns for follow up with his . The past year has been uneventful. Last labs 10/2023. Charlie Turpin MD [address], [place], [address], [facility] 06/09/2024 13:32:38
--- OUTSIDE RECORDS SUMMARY | 2025-02-28 14:37 | XMS_ITS | Clinical Summary ---
Author Organization [facility] Address [address] [place] [address] Phone Care Team Providers Care Fitness Supervisor Name Role Phone Juan Mann MD Primary Care Provider [phone] Allergies No known active allergies Social History [...] VACCINES (50+ years) (2 of 2 - PCV20 or PCV21) 01/28/2017 01/29/2016 RSV VACCINE (1 - 1-dose 75+ series) 2020 INFLUENZA VACCINE (#1) 2024 1, 01/02/2020, 01/05/2019 COVID-19 VACCINE (2 - 2024-2 6 season) 2024 03/04/2021 HEPATITIS A VACCINES Aged Out No long er eligible based on patient's age to complete this topic HIB VACCINES Aged Out No longer eligi ble based on patient's age to complete this topic IPV VACCINES Aged Out No longer eligi ble based on patient's age to complete this topic MENINGOCOCCAL VACCINES (ACWY) Aged Out No longer eligible based on patient's age to complete this topic MENINGOCOCCAL VACCINES (B) Aged Out N o longer eligible based on patient's age to complete this topic Medical Devices Not on file Insurance [address] [place] [address] MEDICARE PART A & B [facility] MEDICARE SUPPLEMENT [address] [place] [address] MEDICARE PART A & B MEDICARE SUPPLEMENT MEDICARE PART A & B MEDICARE SUPPLEMENT [address] [place] [address] MEDICARE PART A & B [id number] [place] [address] MEDICARE SUPPLEMENT [address] [place] [address] MEDICARE PART A & B [facility] MEDICARE SUPPLEMENT [address] [place] [address] MEDICARE PART A & B MEDICARE SUPPLEMENT [address] [place] [address] MEDICARE PART A & B MEDICARE SUPPLEMENT [employer] [address] [place] [address] MEDICARE PART A & B [facility] MEDICARE SUPPLEMENT [employer] [address] [place] [address] MEDICARE PART A & B [facility] MEDICARE SUPPLEMENT Care Teams Fitness Supervisor Relationship Specialty Start Date End Date Juan Mann MD [address] [place] [address] PCP - General Internal Medicine 10/03/14 Additional Source Comments The information contained in this document represents components of the legal health record. It is not the complete legal health record.[facility]
--- OUTSIDE RECORDS SUMMARY | 2025-02-28 14:37 | XMS_ITS | Patient Health Record ---
Author Organization [facility] Address [address] [facility] [address] [place] [address] Care Team Providers Care Alcohol Still Operator Name Role Phone Juan Mann Primary Care Provider LYSSA Ventura Unavailable [phone] Allergies No Known Allergies Results Component Value Reference Range Notes Anaerobic/Aerobic/Gram Stain -724983 Reviewed date:02/21/2025 08:08:41 AM Interpretation: Performing Lab:[facility], [address], [address], [place], Phone - [phone], Director - [facility] Notes/Report: Clinical Information:SRC: SOURCE NOT INDICATED Clinical [...] 1 tablet Orally Once a day Active Amoxicillin-Pot Clavulanate 875-125 MG 1 tablet Orally daily; Duration: 7 days 02/21/2025 Active Memantine HCl 5 MG 1 tablet Orally twic e a day Active Zenpep 17358-34065 UNIT as directed Orally Active Donepezil HCl 10 MG 1 tablet at bedtime Orally Once a day Active Lexapro 20 MG 1 tablet Orally Once a day Active Problems Problem Type SNOMED Code ICD Code Onset Dates Problem Status W/U Status Risk Notes Problem Polyneuropathy associated with another disorder (132218346) Polyneuropathy associated with underlying disease (G63) Active confirmed Problem Acquired cavovarus deformity of left foot (1396873721794863 ) 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.6X2) Active confirmed Problem Pressure injury of toe of left foot stage III (disorder) (236854431998916) Pressure injury of toe of left foot, [...] N/A Encounters Encounter Location Date Provider Diagnosis [facility] [address] 02/16/2025 LYSSA VERDE Pressure injury of t oe of left foot, stage 3 L89.893 ; Acquired cavovarus deformity of left foot M21.6X2 ; Acquired claw toe of left foot M20.5X2 ; Left foot drop M21.372 ; Polyneuropathy associated with underlying disease G63 and Nail dystrophy L60.3 [facility] [address] 12/26/2024 LYSSA VERDE [facility] [address] [address] 02/21/2025 LYSSA VERDE Assessments Encounter Date Diagnosis (ICD [...] the nails today using a sterile nail machine operator. These have been sent off for bacterial and fungal testing through [facility] pathology. If there is a fungal infection, we can treat topically for the next year. If there is no infection, there is not much that can be done to normalize the nail plates. The both expressed understanding of this. Plan Of Treatment Pending Test Test Name Order Date Debridement ulcer subq first 20sq cm Next Appt Details Provider Name:LYSSA VERDE, 03/03/2025 02:15:00 PM, [address] [address], [place], [address], Insurance Providers Payer Name Payer Address Payer Phone Subscriber Number Group Number Insured Name Patient Relationship to Insured Coverage Start Date Coverage End Date [employer] of [place] [address] [place] [phone] [id number] SergAntony Self - patient is the insured A[employer] Secondary to Medicare [address] [place] [address] [id number] Antony Ulrich Self - patient is the [...] Reason Date(Month/Year) orthostatic hypotension/ left DVT 2023 [facility] broken ankle after fall ing off bed 12/2022 partial right hip replacement 07/14/2013 left knee replacement 2009 right hip replacement 2002, 2007 [facility]
--- OUTSIDE RECORDS SUMMARY | 2025-02-28 14:37 | XMS_ITS | Patient Health Record ---
Author Organization [facility] Address [address] [facility] [address] [place] [address] Care Team Providers Care Agriculture Laboratory Technician Name Role Phone IVAN DIXON Primary Care Provider Lopez Lepe Unavailable [phone] Allergies No Known Allergies Reason For Referral No Information Medications Medication SIG (Take, Route, Frequency, Duration) Notes Start Date End Date Status Zenpep 43[address] UNIT Capsule Delayed Release Particles Oral; Duration: [...] Status W/U Status Risk Notes Problem Migraine (30219540) Migraine (G43.909) Active confirmed Problem Mild cognitive disorder (243970708) MCI (mild cognitive impairment) (G31.84) Active confirmed Problem Vasculitis (70563865) Vasculitis (I77.6) Active confirmed Problem Hypothyroidism (38930609) Hypothyroidism, unspecified type (E03.9) Active confirmed Plan [...] End Date Medicare Part B [address] [address] [place] [address] [id number] Antony Ulrich Self - patient is the insured [facility] Supplemental Plan [address] [place] [phone] [id number] Antony Ulrich Self - patient is the insured Medical (General) History Medical History History ICD Code Migraine G43.909
--- OUTSIDE RECORDS SUMMARY | 2025-02-28 14:37 | XMS_ITS | Clinical Summary ---
Author Organization [facility] Address [address] [place] [address] Care Team Providers Care Impersonator Character Name Role Phone Juan Mann MD Primary Care Provider Surgical History Surgery Date Site/Laterality Comments OTHER SURGICAL HISTORY PROCEDURE: DE ARTHRP ACETBLR/PROX FEM PROSTC AGRFT/ALGRFT TOTAL KNEE ARTHROPLASTY PROCEDURE: DE ARTHRP KNE CONDYLE&PLATU MEDIAL&LAT COMPARTMENTS Medical History [...] Screening 03/22/2022 Depression Screening 04/20/2024 COVID-19 Vaccine (2024-2 6 season) 2024 Influenza Vaccine (#1) 2024 HIB [...] age to complete this topic Care Teams Impersonator Character Relationship Specialty Start Date End Date Juan Mann MD PCP - General 01/25/16
== END 2025-02-28 13:31 | disposition home or self-care (01) ==
LOC: HO.HPS 12:55
PROVIDERS: PCP Internal Medicine; Visit Provider Hospitalist
DX: R91.1 Solitary pulmonary nodule (principal); R06.2 Wheezing
CPT/HCPCS: 99214

== ENCOUNTER → 2025-02-28 12:54 | Outpatient (BNVA) | payer MEDICARE, SELFPAY | PROVIDERS: PCP Internal Medicine; Visit Provider Hospitalist | DX: R91.1 Solitary pulmonary nodule (principal); J44.9 Chronic obstructive pulmonary disease, unspecified; R06.2 Wheezing | CPT/HCPCS: 99212 ==